=== PATIENT | female | born 1980 | race American Indian/Alaskan Native ===

== ENCOUNTER 2021-03-05 14:36 | Inpatient (IN) | payer MEDICAID, OTHER ==
[2021-03-05] MEDS ORDERED: SODIUM CHLORIDE 0.9% 1000 ML IV SOLN IV ONE (16:25)
[2021-03-05] MEDS ORDERED: AZITHROMYCIN/NS 500 MG/250 ML 500 MG/250 ML BAG IV ONE (16:25)
[2021-03-05] MEDS ORDERED: cefTRIAXone/NS 2 GM/100 ML 2 GM/100 ML BAG IV ONE (16:25)
--- NOTE | 2021-03-05 16:52 | XRay Report ---
CHEST 1 VIEW 03/05/2021 4:44 PM INDICATION / CLINICAL INFORMATION: Shortness of breath. COMPARISON: None available. FINDINGS: SUPPORT DEVICES: None. HEART / MEDIASTINUM: No significant abnormality. LUNGS / PLEURA: There are patchy bilateral pulmonary opacities. No pneumothorax. ADDITIONAL FINDINGS: No significant additional findings. IMPRESSION: 1. Patchy bilateral pulmonary opacities suggestive of multifocal pneumonia. Signer Name: Toby Dinh MD Signed: 03/05/2021 4:48 PM Workstation Name: [id number]
[2021-03-05] MEDS ORDERED: LIDOCAINE VISCOUS 2% 15 ML ORAL LIQD PO ONE (17:22)
[2021-03-05 17:27] LABS: Bacteria,Urine 1+ /HPF (Negative); Bilirubin,Urine NEG (Negative); Blood,Urine SM (Negative); Color,Urine Yellow (Yellow); Mucus,Urine FEW /HPF; Urobilinogen,Urine < 2.0 mg/dL (<2.0)
[2021-03-05 17:38] LABS: Albumin 3.3 g/dL (3.9-5); Calcium 8.1 mg/dL (8.4-10.2)
--- NOTE | 2021-03-05 18:01 | Emergency Department Report ---
ED General Adult HPI - General Chief complaint: Dyspnea/Respdistress Stated complaint: COVID +/SCOTTY Time Seen by Provider: 03/05/21 15:55 Source: EMS Mode of arrival: Stretcher Limitations: No Limitations - History of Present Illness Initial comments: The patient presents to the emergency department with a chief complaint of increased shortness of breath. Patient states she was diagnosed with COVID-19 on February 24. Patient states that shortness of breath is worse with exertion. Upon EMS arrival her O2 sats were 88% on room air. Patient denies abdominal pain or headache. Patient does have chest pain with inspiration. -: Gradual Severity scale (0 -10): 3 Quality: aching Consistency: constant Improves with: none Worsens with: none Associated Symptoms: denies other symptoms Treatments Prior to Arrival: none - Related Data Home Medications Medication Instructions Recorded Confirmed Last Taken Ferrous Sulfate [Feosol 325 MG tab] 325 mg PO QDAY 06/15/16 03/05/21 03/05/21 Previous Rx's Medication Instructions Recorded Last Taken Type HYDROcodone/APAP 5-325 [[place] 1 each PO Q6HR PRN #24 tablet 06/29/16 Unknown Rx 5/325] Allergies Allergy/AdvReac Type Severity Reaction Status Date / Time No Known Allergies Allergy Verified 03/05/21 15:52 ED Review of Systems ROS: Stated complaint: COVID +/SCOTTY Other details as noted in HPI Constitutional: denies: chills, fever Eyes: denies: eye pain, eye discharge, vision change ENT: denies: ear pain, throat pain Respiratory: shortness of breath. denies: cough, wheezing Cardiovascular: denies: chest pain, palpitations Endocrine: no symptoms reported Gastrointestinal: denies: abdominal pain, nausea, diarrhea Genitourinary: denies: urgency, dysuria, discharge Musculoskeletal: denies: back pain, joint swelling, arthralgia Skin: denies: rash, lesions Neurological: denies: headache, weakness, paresthesias Psychiatric: denies: anxiety, depression Hematological/Lymphatic: denies: easy bleeding, easy bruising ED Past Medical Hx - Past Medical History Hx Hypertension: No Hx Congestive Heart Failure: No Hx Diabetes: No Hx Deep Vein Thrombosis: Yes Hx Pulmonary Embolism: Yes (IN 2011) Hx Renal Disease: No Hx Sickle Cell Disease: No Hx Seizures: No Hx Asthma: No Hx COPD: No Hx HIV: No Additional medical history: anemia - Surgical History Past Surgical History?: Yes Additional Surgical History: Myoectomy - Social History Smoking Status: Never Smoker Substance Use Type: None - Medications Home Medications: Home Medications Medication Instructions Recorded Confirmed Last Taken Type Ferrous Sulfate [Feosol 325 MG tab] 325 mg PO QDAY 06/15/16 03/05/21 03/05/21 History HYDROcodone/APAP 5-325 [[place] 1 each PO Q6HR PRN #24 tablet 06/29/16 Unknown Rx 5/325] ED Physical Exam - General Limitations: No Limitations General appearance: alert, in no apparent distress - Head Head exam: Present: atraumatic, normocephalic - Eye Eye exam: Present: normal appearance, PERRL, EOMI - ENT ENT exam: Present: mucous membranes moist - Neck Neck exam: Present: normal inspection - Respiratory Respiratory exam: Present: respiratory distress, rales - Cardiovascular Cardiovascular Exam: Present: normal rhythm, tachycardia. Absent: systolic murmur, diastolic murmur, rubs, gallop - GI/Abdominal GI/Abdominal exam: Present: soft, normal bowel sounds. Absent: distended, tenderness - Extremities Exam Extremities exam: Present: normal inspection - Back Exam Back exam: Present: normal inspection - Neurological Exam Neurological exam: Present: alert, oriented X3, CN II-XII intact. Absent: motor sensory deficit - Psychiatric Psychiatric exam: Present: normal affect, normal mood - Skin Skin exam: Present: warm, dry, intact, normal color. Absent: rash ED Course Vital Signs 03/05/21 03/05/21 03/05/21 15:00 15:37 15:40 Temperature 100.0 F H 99.4 F Pulse Rate 84 Respiratory 33 H Rate Blood Pressure 94/55 Blood Pressure [Right] O2 Sat by Pulse 88 98 Oximetry 03/05/21 03/05/21 15:53 17:14 Temperature Pulse Rate 83 Respiratory 21 26 H Rate Blood Pressure Blood Pressure 109/62 [Right] O2 Sat by Pulse 98 98 Oximetry ED Medical Decision Making - Lab Data Result diagrams: 03/05/21 17:01 Lab Results 03/05/21 03/05/21 03/05/21 Range/Units 17:01 17:01 17:01 WBC 7.8 (4.5-11.0) K/mm3 RBC 4.16 (3.65-5.03) M/mm3 Hgb 11.7 (10.1-14.3) gm/dl Hct 35.5 (30.3-42.9) % MCV 85 (79-97) fl MCH 28 (28-32) pg MCHC 33 (30-34) % RDW 15.8 H (13.2-15.2) % Plt Count 288 (140-440) K/mm3 Lymph % (Auto) 8.9 L (13.4-35.0) % Bee % (Auto) 11.6 H (0.0-7.3) % Eos % (Auto) 0.0 (0.0-4.3) % Baso % (Auto) 0.2 (0.0-1.8) % Lymph # (Auto) 0.7 L (1.2-5.4) K/mm3 Bee # (Auto) 0.9 H (0.0-0.8) K/mm3 Eos # (Auto) 0.0 (0.0-0.4) K/mm3 Baso # (Auto) 0.0 (0.0-0.1) K/mm3 Seg Neutrophils % 79.3 H (40.0-70.0) % Seg Neutrophils # 6.2 (1.8-7.7) K/mm3 Sodium 122 L (137-145) mmol/L Potassium 4.5 (3.6-5.0) mmol/L Chloride 90.7 L (98-107) mmol/L Carbon Dioxide 15 L (22-30) mmol/L Anion Gap 21 mmol/L BUN 34 H (7-17) mg/dL Creatinine 1.5 H (0.6-1.2) mg/dL Estimated GFR 47 ml/min BUN/Creatinine Ratio 23 % Glucose 90 (65-100) mg/dL Lactic Acid 1.40 (0.7-2.0) mmol/L Calcium 8.1 L (8.4-10.2) mg/dL Total Bilirubin 0.70 (0.1-1.2) mg/dL AST 75 H (5-40) units/L ALT 49 (7-56) units/L Alkaline Phosphatase 53 (35-129) units/L Total Protein 7.7 (6.3-8.2) g/dL Albumin 3.3 L (3.9-5) g/dL Albumin/Globulin Ratio 0.8 % Urine Color (Yellow) Urine Turbidity (Clear) Urine pH (5.0-7.0) Ur Specific [place] (1.003-1.030) Urine Protein (Negative) mg/dL Urine Glucose (UA) (Negative) mg/dL Urine Ketones (Negative) mg/dL Urine Blood (Negative) Urine Nitrite (Negative) Urine Bilirubin (Negative) Urine Urobilinogen (<2.0) mg/dL Ur Leukocyte Esterase (Negative) Urine WBC (Auto) (0.0-6.0) /HPF Urine RBC (Auto) (0.0-6.0) /HPF U Epithel Cells (Auto) (0-13.0) /HPF Urine Bacteria (Auto) (Negative) /HPF Urine Mucus /HPF Urine Yeast (Budding) /HPF 03/05/21 Range/Units Unknown WBC (4.5-11.0) K/mm3 RBC (3.65-5.03) M/mm3 Hgb (10.1-14.3) gm/dl Hct (30.3-42.9) % MCV (79-97) fl MCH (28-32) pg MCHC (30-34) % RDW (13.2-15.2) % Plt Count (140-440) K/mm3 Lymph % (Auto) (13.4-35.0) % Bee % (Auto) (0.0-7.3) % Eos % (Auto) (0.0-4.3) % Baso % (Auto) (0.0-1.8) % Lymph # (Auto) (1.2-5.4) K/mm3 Bee # (Auto) (0.0-0.8) K/mm3 Eos # (Auto) (0.0-0.4) K/mm3 Baso # (Auto) (0.0-0.1) K/mm3 Seg Neutrophils % (40.0-70.0) % Seg Neutrophils # (1.8-7.7) K/mm3 Sodium (137-145) mmol/L Potassium (3.6-5.0) mmol/L Chloride (98-107) mmol/L Carbon Dioxide (22-30) mmol/L Anion Gap mmol/L BUN (7-17) mg/dL Creatinine (0.6-1.2) mg/dL Estimated GFR ml/min BUN/Creatinine Ratio % Glucose (65-100) mg/dL Lactic Acid (0.7-2.0) mmol/L Calcium (8.4-10.2) mg/dL Total Bilirubin (0.1-1.2) mg/dL AST (5-40) units/L ALT (7-56) units/L Alkaline Phosphatase (35-129) units/L Total Protein (6.3-8.2) g/dL Albumin (3.9-5) g/dL Albumin/Globulin Ratio % Urine Color Yellow (Yellow) Urine Turbidity Slightly-cloudy (Clear) Urine pH 5.0 (5.0-7.0) Ur Specific [place] 1.010 (1.003-1.030) Urine Protein 30 mg/dl (Negative) mg/dL Urine Glucose (UA) Neg (Negative) mg/dL Urine Ketones Neg (Negative) mg/dL Urine Blood Sm (Negative) Urine Nitrite Neg (Negative) Urine Bilirubin Neg (Negative) Urine Urobilinogen < 2.0 (<2.0) mg/dL Ur Leukocyte Esterase Neg (Negative) Urine WBC (Auto) 6.0 (0.0-6.0) /HPF Urine RBC (Auto) 3.0 (0.0-6.0) /HPF U Epithel Cells (Auto) 1.0 (0-13.0) /HPF Urine Bacteria (Auto) 1+ (Negative) /HPF Urine Mucus Few /HPF Urine Yeast (Budding) 2+ /HPF - Radiology Data Radiology results: report reviewed - Medical Decision Making Results discussed with patient IV antibiotics and IV steroids given IV fluids given Critical Care Time: Yes Critical care time in (mins) excluding proc time.: 35 Critical care attestation.: If time is entered above; I have spent that time in minutes in the direct care of this critically ill patient, excluding procedure time. ED Disposition Clinical Impression: Pneumonia due to COVID-19 virus Disposition: OP ADMIT IP TO THIS HOSP Is pt being admited?: Yes Does the pt Need Aspirin: No Condition: Fair Instructions: Bacterial Pneumonia (ED) Referrals: PRIMARY CARE, [Primary Care Provider] - 3-5 Days
[2021-03-05 18:06] LABS: Basophils % (Auto) 0.2 % (0.0-1.8); Hematocrit 35.5 % (30.3-42.9); Hemoglobin 11.7 gm/dl (10.1-14.3); Lymphocytes # (Auto) 0.7 K/mm3 (1.2-5.4); Lymphocytes % (Auto) 8.9 % (13.4-35.0); Mean Corpuscular HGB Conc 33 % (30-34); Mean Corpuscular Volume 85 fl (79-97); Monocytes # (Auto) 0.9 K/mm3 (0.0-0.8); Monocytes % (Auto) 11.6 % (0.0-7.3); Platelet Count 288 K/mm3 (140-440); Red Blood Count 4.16 M/mm3 (3.65-5.03); Red Cell Distribution Width 15.8 % (13.2-15.2)
--- NOTE | 2021-03-05 18:43 | History and Physical Report ---
History of Present Illness Chief complaint: I cannot breathe History of present illness: 39 YO Female with Anemia, Obesity Hyopventilation Syndrome, History of DVT/PE in 2012 not currently taking anticoagulation presents to ED for evaluation. Pt reports "I cannot breathe". Patient states that she has experienced shortness of breath over the past 1 week with progressively worsening symptoms over the same timeframe. Patient states that she was diagnosed with coronavirus on February 24, 2021. Patient acknowledges worsening symptoms over the 1 week. EMS notified and upon arrival the patient was found to be in distress with a pulse oximetry of 86% on room air. Patient placed on supplemental oxygen and subsequently transported to [facility] for further care and evaluation of the aforementioned symptoms. The patient was seen and evaluated in the emergency department. All lab and imaging studies reviewed. Patient acknowledges fatigue, malaise, body aches, shortness of breath, subjective fever, as well as decreased exercise tolerance. Patient is unable to speak in complete sentences due to shortness of breath. Patient is using accessory muscles to breathe. Patient found to have a pulse oximetry of 84% on exertion which is consistent with acute hypoxemic respiratory failure. Chest x-ray revealed bilateral pneumonia. Patient admitted to medical floor and initiated on pneumonia protocol as well as coronavirus protocol. Patient treated with supplemental oxygen with mild improvement in symptoms. Infectious disease team consulted in ED. Patient use head gestures to deny chest pain, palpitation, skin rash, recent ill contacts, known exposure to COVID-19. No prior admission for review. No medication listed at time of admission for reconciliation. Past History Past Medical History: DVT, pulmonary embolism, other (See HPI) Past Surgical History: Other Social history: single. denies: smoking, alcohol abuse, prescription drug abuse Family history: diabetes, hypertension Medications and Allergies Allergies Allergy/AdvReac Type Severity Reaction Status Date / Time No Known Allergies Allergy Verified 03/05/21 15:52 Home Medications Medication Instructions Recorded Confirmed Last Taken Type Ferrous Sulfate [Feosol 325 MG tab] 325 mg PO QDAY 06/15/16 03/05/21 03/05/21 History HYDROcodone/APAP 5-325 [[place] 1 each PO Q6HR PRN #24 tablet 06/29/16 Unknown Rx 5/325] Review of Systems Constitutional: fatigue, weakness, malaise, no chills, no sweats Ears, nose, mouth and throat: no ear pain, no ear discharge, no tinnitis, no nose pain, no nasal congestion Breasts: no change in shape, no swelling, no mass Cardiovascular: decreased exercise tolerance, no chest pain, no orthopnea, no rapid/irregular heart beat, no lightheadedness Respiratory: cough, shortness of breath Gastrointestinal: no nausea, no vomiting, no change in bowel habits Genitourinary Female: no pelvic pain, no flank pain, no dysuria, no urinary frequency, no urgency Rectal: no pain, no incontinence, no bleeding Musculoskeletal: no neck stiffness, no neck pain, no shooting arm pain, no arm numbness/tingling, no shooting leg pain, no leg numbness/tingling Integumentary: no rash, no pruritis, no redness, no sores, no wounds, no jaundice Neurological: no transient paralysis, no paralysis, no weakness, no parathesias, no tingling, no syncope Psychiatric: no anxiety, no insomnia, no hypersomnia, no change in appetite, no change in libido, no disorientation Endocrine: no cold intolerance, no heat intolerance, no polyphagia, no polydipsia, no polyuria, no nocturia, no excessive sweating Hematologic/Lymphatic: no easy bruising, no easy bleeding, no lymphadenopathy, no lymphedema Allergic/Immunologic: no urticaria, no wheezing, no anaphylaxis Exam - Constitutional Vitals: Temp Pulse Resp BP Pulse Ox 98.3 F 86 29 H 106/67 98 03/05/21 18:08 03/05/21 18:31 03/05/21 18:31 03/05/21 18:31 03/05/21 18:31 General appearance: Present: mild distress, obese - EENT Eyes: Present: PERRL ENT: hearing intact, clear oral mucosa - Neck Neck: Present: supple, normal ROM - Respiratory Respiratory effort: labored, accessory muscle use, stridor Respiratory: bilateral: diminished - Cardiovascular Heart Sounds: Present: S1 & S2. Absent: rub, click - Extremities Extremities: pulses symmetrical, No edema Peripheral Pulses: within normal limits - Abdominal General gastrointestinal: Present: soft, non-tender, non-distended, normal bowel sounds Female genitourinary: Present: normal - Integumentary Integumentary: Present: clear, warm, dry - Musculoskeletal Musculoskeletal: generalized weakness - Psychiatric Psychiatric: appropriate mood/affect, intact judgment & insight - Neurologic Neurologic: CNII-XII intact, moves all extremities Results - Labs CBC & Chem 7: 03/05/21 17:01 03/05/21 17:01 Labs: Abnormal lab results 03/05/21 03/05/21 03/05/21 Range/Units 17:01 17:01 18:07 RDW 15.8 H (13.2-15.2) % Lymph % (Auto) 8.9 L (13.4-35.0) % [place] % (Auto) 11.6 H (0.0-7.3) % Lymph # (Auto) 0.7 L (1.2-5.4) K/mm3 [place] # (Auto) 0.9 H (0.0-0.8) K/mm3 Seg Neutrophils % 79.3 H (40.0-70.0) % POC ABG pCO2 27.3 L (32.0-48.0) mmHg ABG Hemoglobin 11.7 L (12.0-17.5) ABG Sodium 123.8 L (136.0-145.0) mmol/L ABG Glucose 109 H (65-95) mg/dL Carboxyhemoglobin 0.4 L (0.5-1.5) Sodium 122 L (137-145) mmol/L Chloride 90.7 L (98-107) mmol/L Carbon Dioxide 15 L (22-30) mmol/L BUN 34 H (7-17) mg/dL Creatinine 1.5 H (0.6-1.2) mg/dL Calcium 8.1 L (8.4-10.2) mg/dL AST 75 H (5-40) units/L Albumin 3.3 L (3.9-5) g/dL Arterial Blood Glucose 109 H (65-95) mg/dL Arterial Blood Ionized Calcium 4.3 L (4.6-5.3) mg/dL Assessment and Plan - Patient Problems (1) Acute hypoxemic respiratory failure Current Visit: Yes Status: Acute Plan to address problem: Chest x-ray, supplemental oxygen, pulse oximetry, nebulizer therapy, noninvasive positive pressure ventilation as clinically indicated. (2) Pneumonia Current Visit: Yes Status: Acute Plan to address problem: Pneumonia protocol: Chest x-ray, CBC, CMP, supplemental oxygen, nebulizer therapy, blood culture. IV antibiotic therapy. (3) Suspected 2019 novel coronavirus infection Current Visit: Yes Status: Acute Plan to address problem: Coronavirus protocol: IV antibiotic therapy, IV steroid therapy, supplemental oxygen, pulse oximetry, nebulizer therapy, vitamin D therapy, vitamin C therapy, zinc therapy, prophylactic anticoagulation, prone positioning while in bed, (4) Obesity hypoventilation syndrome Current Visit: Yes Status: Acute Plan to address problem: Balanced diet, increase physical activity at discharge, outpatient pulmonary follow-up for sleep study. (5) History of DVT (deep vein thrombosis) Current Visit: Yes Status: Acute Plan to address problem: No prehospital anticoagulation. Continue prophylactic anticoagulation. (6) History of pulmonary embolism Current Visit: Yes Status: Acute Plan to address problem: No prehospital anticoagulation. Continue prophylactic anticoagulation. (7) DVT prophylaxis Current Visit: Yes Status: Acute Plan to address problem: SCD to bilateral lower extremities while in bed, prophylactic anticoagulation.
[2021-03-05] MEDS ORDERED: ACETAMINOPHEN 325 MG TAB PO PRN (18:49)
[2021-03-05] MEDS ORDERED: HYDROmorphone 1 MG/1 ML INJ IV PRN (18:49)
[2021-03-05] MEDS ORDERED: ALBUTEROL 2.5 MG/3 ML NEBU IH PRN (18:49)
[2021-03-05] MEDS ORDERED: oxyCODONE /ACETAMINOPHEN 5-325MG TAB PO PRN (18:49)
[2021-03-05] MEDS ORDERED: ONDANSETRON 4 MG/2 ML INJ IV PRN (18:49)
[2021-03-05] MEDS ORDERED: BENZONATATE 100 MG CAP PO PRN (18:53)
[2021-03-05] MEDS: methylPREDNISolone Sod Succinate 40 MG/1 ML INJ IV SCH (23:42)
[2021-03-05] MEDS: ZINC SULFATE 220 MG CAP PO SCH (23:42)
[2021-03-05] MEDS: FAMOTIDINE 20 MG TAB PO SCH (23:42)
[2021-03-05] MEDS: HEPARIN 5,000 UNIT/1 ML VIAL SUB-Q SCH (23:43)
[2021-03-06] MEDS: ASCORBIC ACID 500 MG TAB PO SCH ×3 (03:03→22:37)
[2021-03-06 05:50] LABS: Basophils % (Auto) 0.1 % (0.0-1.8); Hematocrit 33.4 % (30.3-42.9); Hemoglobin 11.3 gm/dl (10.1-14.3); Lymphocytes # (Auto) 0.4 K/mm3 (1.2-5.4); Lymphocytes % (Auto) 6.6 % (13.4-35.0); Mean Corpuscular HGB Conc 34 % (30-34); Mean Corpuscular Volume 85 fl (79-97); Monocytes # (Auto) 0.5 K/mm3 (0.0-0.8); Monocytes % (Auto) 8.7 % (0.0-7.3); Platelet Count 296 K/mm3 (140-440); Red Blood Count 3.91 M/mm3 (3.65-5.03); Red Cell Distribution Width 15.5 % (13.2-15.2)
[2021-03-06 06:20] LABS: Alanine Aminotransferase 43 units/L (7-56); Albumin 3.3 g/dL (3.9-5); BUN/Creatinine Ratio 18; Blood Urea Nitrogen 20 mg/dL (7-17); Calcium 7.7 mg/dL (8.4-10.2); Hemolysis Index 3
[2021-03-06] MEDS: methylPREDNISolone Sod Succinate 40 MG/1 ML INJ IV SCH ×3 (07:47→22:37)
--- NOTE | 2021-03-06 08:21 | Progress Note ---
Assessment and Plan Assessment and plan: Sepsis. COVID-19 pneumonia. Acute hypoxic respiratory failure. Etiology secondary to above. Obesity hypoventilation syndrome/SHERIE History of DVT/PE in 201103/06/2021. Await ID consultation. Continue to trend inflammatory markers. Continue IV antibiotics for now. Patient currently with 3 L O2 and satting 96%. Continue O2 supplementation and BiPAP as clinically indicated. History Interval history: No new issues overnight. Hospitalist Physical - Constitutional Vitals: Temp Pulse Resp BP Pulse Ox 98.8 F 81 19 113/75 97 03/05/21 21:00 03/06/21 07:45 03/06/21 07:45 03/06/21 07:45 03/06/21 07:45 General appearance: Present: mild distress, obese - EENT Eyes: Present: PERRL, EOM intact ENT: hearing intact, clear oral mucosa, dentition normal - Neck Neck: Present: supple, normal ROM - Respiratory Respiratory effort: normal Respiratory: bilateral: CTA - Cardiovascular Rhythm: regular Heart Sounds: Present: S1 & S2. Absent: gallop, rub - Extremities Extremities: no ischemia, No edema, Full ROM - Abdominal General gastrointestinal: soft, non-tender, non-distended, normal bowel sounds - Integumentary Integumentary: Present: clear, warm, dry - Neurologic Neurologic: CNII-XII intact, moves all extremities Results - Labs CBC & Chem 7: 03/06/21 05:21 03/06/21 05:21 Labs: Laboratory Last Values WBC 5.5 K/mm3 (4.5-11.0) 03/06/21 05:21 RBC 3.91 M/mm3 (3.65-5.03) 03/06/21 05:21 Hgb 11.3 gm/dl (10.1-14.3) 03/06/21 05:21 Hct 33.4 % (30.3-42.9) 03/06/21 05:21 MCV 85 fl (79-97) 03/06/21 05:21 MCH 29 pg (28-32) 03/06/21 05:21 MCHC 34 % (30-34) 03/06/21 05:21 RDW 15.5 % (13.2-15.2) H 03/06/21 05:21 Plt Count 296 K/mm3 (140-440) 03/06/21 05:21 Lymph % (Auto) 6.6 % (13.4-35.0) L 03/06/21 05:21 [place] % (Auto) 8.7 % (0.0-7.3) H 03/06/21 05:21 Eos % (Auto) 0.0 % (0.0-4.3) 03/06/21 05:21 Baso % (Auto) 0.1 % (0.0-1.8) 03/06/21 05:21 Lymph # (Auto) 0.4 K/mm3 (1.2-5.4) L 03/06/21 05:21 [place] # (Auto) 0.5 K/mm3 (0.0-0.8) 03/06/21 05:21 Eos # (Auto) 0.0 K/mm3 (0.0-0.4) 03/06/21 05:21 Baso # (Auto) 0.0 K/mm3 (0.0-0.1) 03/06/21 05:21 Seg Neutrophils % 84.6 % (40.0-70.0) H 03/06/21 05:21 Seg Neutrophils # 4.7 K/mm3 (1.8-7.7) 03/06/21 05:21 APTT 34.6 Sec. (24.2-36.6) 03/05/21 17:01 ABG pH 7.351 (7.320-7.450) 03/05/21 18:07 POC ABG pCO2 27.3 mmHg (32.0-48.0) L 03/05/21 18:07 POC ABG pO2 95.9 mmHg (83-108) 03/05/21 18:07 POC ABG HCO3 14.8 03/05/21 18:07 ABG O2 Saturation 96.8 (0-100) 03/05/21 18:07 POC ABG Base Excess -9.4 03/05/21 18:07 ABG Hemoglobin 11.7 (12.0-17.5) L 03/05/21 18:07 ABG Oxyhemoglobin 96.1 (94-98) 03/05/21 18:07 ABG Methemoglobin 0.3 (0.0-1.5) 03/05/21 18:07 ABG Sodium 123.8 mmol/L (136.0-145.0) L 03/05/21 18:07 ABG Potassium 4.0 mmol/L (3.40-4.50) 03/05/21 18:07 ABG Chloride 101.0 mmol/L (98-107) 03/05/21 18:07 ABG Glucose 109 mg/dL (65-95) H 03/05/21 18:07 Carboxyhemoglobin 0.4 (0.5-1.5) L 03/05/21 18:07 FiO2 % 32.0 03/05/21 18:07 Sodium 136 mmol/L (137-145) L D 03/06/21 05:21 Potassium 5.2 mmol/L (3.6-5.0) H 03/06/21 05:21 Chloride 107.1 mmol/L (98-107) H 03/06/21 05:21 Carbon Dioxide 15 mmol/L (22-30) L 03/06/21 05:21 Anion Gap 19 mmol/L 03/06/21 05:21 BUN 20 mg/dL (7-17) H 03/06/21 05:21 Creatinine 1.1 mg/dL (0.6-1.2) 03/06/21 05:21 Estimated GFR > 60 ml/min 03/06/21 05:21 BUN/Creatinine Ratio 18 % 03/06/21 05:21 Glucose 123 mg/dL (65-100) H 03/06/21 05:21 Lactic Acid 1.20 mmol/L (0.7-2.0) 03/05/21 19:09 Calcium 7.7 mg/dL (8.4-10.2) L 03/06/21 05:21 Total Bilirubin 0.40 mg/dL (0.1-1.2) 03/06/21 05:21 AST 63 units/L (5-40) H 03/06/21 05:21 ALT 43 units/L (7-56) 03/06/21 05:21 Alkaline Phosphatase 52 units/L (35-129) 03/06/21 05:21 Total Protein 6.7 g/dL (6.3-8.2) 03/06/21 05:21 Albumin 3.3 g/dL (3.9-5) L 03/06/21 05:21 Albumin/Globulin Ratio 1.0 % 03/06/21 05:21 Arterial Blood Glucose 109 mg/dL (65-95) H 03/05/21 18:07 Arterial Blood Ionized Calcium 4.3 mg/dL (4.6-5.3) L 03/05/21 18:07 Urine Color Yellow (Yellow) 03/05/21 Unknown Urine Turbidity Slightly-cloudy (Clear) 03/05/21 Unknown Urine pH 5.0 (5.0-7.0) 03/05/21 Unknown Ur Specific [place] 1.010 (1.003-1.030) 03/05/21 Unknown Urine Protein 30 mg/dl mg/dL (Negative) 03/05/21 Unknown Urine Glucose (UA) Neg mg/dL (Negative) 03/05/21 Unknown Urine Ketones Neg mg/dL (Negative) 03/05/21 Unknown Urine Blood Sm (Negative) 03/05/21 Unknown Urine Nitrite Neg (Negative) 03/05/21 Unknown Urine Bilirubin Neg (Negative) 03/05/21 Unknown Urine Urobilinogen < 2.0 mg/dL (<2.0) 03/05/21 Unknown Ur Leukocyte Esterase Neg (Negative) 03/05/21 Unknown Urine WBC (Auto) 6.0 /HPF (0.0-6.0) 03/05/21 Unknown Urine RBC (Auto) 3.0 /HPF (0.0-6.0) 03/05/21 Unknown U Epithel Cells (Auto) 1.0 /HPF (0-13.0) 03/05/21 Unknown Urine Bacteria (Auto) 1+ /HPF (Negative) 03/05/21 Unknown Urine Mucus Few /HPF 03/05/21 Unknown Urine Yeast (Budding) 2+ /HPF 03/05/21 Unknown Microbiology: Microbiology 03/05/21 19:09 Peripheral/Venous Blood Culture - Preliminary Culture in Progress 03/05/21 17:01 Peripheral/Venous Blood Culture - Preliminary Culture in Progress Active Medications - Current Medications Current Medications: Generic Name Dose Route Start Last Admin Trade Name Freq PRN Reason Stop Dose Admin Acetaminophen 650 mg 03/05/21 18:49 Acetaminophen 325 Mg Tab PO Q4H PRN Pain MILD(1-3)/Fever >100.5/STARK Albuterol 2.5 mg 03/05/21 18:49 Albuterol 2.5 Mg/3 Ml Nebu IH Q4HRT PRN Shortness Of Breath Ascorbic Acid 500 mg 03/05/21 22:00 03/06/21 03:03 Ascorbic Acid 500 Mg Tab PO Not Given BID [facility] Benzonatate 100 mg 03/05/21 18:53 Benzonatate 100 Mg Cap PO Q8HR PRN Cough Cholecalciferol 1,000 unit 03/06/21 10:00 Cholecalciferol (Vit D3) 1000 Unit (25 Mcg) Tab PO QDAY [facility] Famotidine 20 mg 03/05/21 22:00 03/05/21 23:42 Famotidine 20 Mg Tab PO 20 mg BID DEVIKA Administration Ferrous Sulfate 325 mg 03/06/21 10:00 Ferrous Sulfate 325 Mg Tab PO QDAY [facility] Heparin Sodium (Porcine) 5,000 unit 03/05/21 22:00 03/05/21 23:43 Heparin 5,000 Unit/1 Ml Vial SUB-Q 5,000 unit Q12HR DEVIKA Administration Hydromorphone HCl 0.5 mg 03/05/21 18:49 Hydromorphone 1 Mg/1 Ml Inj IV Q12H PRN Pain , Severe (7-10) Ceftriaxone Sodium 2 gm in 100 mls @ 200 mls/hr 03/06/21 16:00 Rocephin/Ns 2 Gm/100 Ml IV Q24H [facility] Protocol Azithromycin 500 mg in 250 mls @ 250 mls/hr 03/06/21 17:00 Zithromax/Ns IV Q24H [facility] Protocol Methylprednisolone Sodium Succinate 40 mg 03/05/21 22:00 03/06/21 07:47 Methylprednisolone Sod Succinate 40 Mg/1 Ml Inj IV 40 mg Q8HR DEVIKA Administration Ondansetron HCl 4 mg 03/05/21 18:49 Ondansetron 4 Mg/2 Ml Inj IV Q8H PRN Nausea And Vomiting Oxycodone/Acetaminophen 1 tab 03/05/21 18:49 Oxycodone /Acetaminophen 5-325mg Tab PO Q12H PRN Pain, Moderate (4-6) Sodium Chloride 10 ml 03/05/21 22:00 03/05/21 23:42 Sodium Chloride 0.9% 10 Ml Flush Syringe IV 10 ml BID DEVIKA Administration Sodium Chloride 10 ml 03/05/21 18:49 Sodium Chloride 0.9% 10 Ml Flush Syringe IV PRN PRN LINE FLUSH Zinc Sulfate 220 mg 03/05/21 22:00 03/05/21 23:42 Zinc Sulfate 220 Mg Cap PO 220 mg BID DEVIKA Administration
[2021-03-06] MEDS ORDERED: LORazepam 2 MG/ML VIAL IV ONE (11:57)
[2021-03-06] MEDS: CHOLECALCIFEROL (VIT D3) 1000 UNIT (25 mcg) TAB PO SCH (12:13)
[2021-03-06] MEDS: ZINC SULFATE 220 MG CAP PO SCH ×2 (12:14→22:37)
[2021-03-06] MEDS: FERROUS SULFATE 325 MG TAB PO SCH (12:14)
[2021-03-06] MEDS: FAMOTIDINE 20 MG TAB PO SCH ×2 (12:14→22:38)
[2021-03-06] MEDS: HEPARIN 5,000 UNIT/1 ML VIAL SUB-Q SCH ×2 (12:14→22:37)
[2021-03-06] MEDS: cefTRIAXone/NS 2 GM/100 ML 2 GM/100 ML BAG IV SCH (18:10)
[2021-03-06] MEDS: AZITHROMYCIN/NS 500 MG/250 ML 500 MG/250 ML BAG IV SCH (18:11)
[2021-03-07] MEDS: methylPREDNISolone Sod Succinate 40 MG/1 ML INJ IV SCH ×3 (05:26→22:22)
--- NOTE | 2021-03-07 08:53 | Progress Note ---
Assessment and Plan Assessment and plan: Sepsis. COVID-19 pneumonia. Acute hypoxic respiratory failure. Etiology secondary to above. Obesity hypoventilation syndrome/SHERIE History of DVT/PE in 201103/06/2021. Await ID consultation. Continue to trend inflammatory markers. Continue IV antibiotics for now. Patient currently with 3 L O2 and satting 96%. Continue O2 supplementation and BiPAP as clinically indicated. 03/07/2021. Await ID consultation. Continue to trend inflammatory markers. Continue O2 to maintain sats greater than 92%. History Interval history: No new issues overnight. Hospitalist Physical - Constitutional Vitals: Temp Pulse Resp BP Pulse Ox 99.0 F 79 20 145/90 96 03/07/21 05:16 03/07/21 05:16 03/07/21 05:16 03/07/21 05:16 03/07/21 05:16 General appearance: Present: mild distress, obese - EENT Eyes: Present: PERRL, EOM intact ENT: hearing intact, clear oral mucosa, dentition normal - Neck Neck: Present: supple, normal ROM - Respiratory Respiratory effort: normal Respiratory: bilateral: CTA - Cardiovascular Rhythm: regular Heart Sounds: Present: S1 & S2. Absent: gallop, rub - Extremities Extremities: no ischemia, No edema, Full ROM - Abdominal General gastrointestinal: soft, non-tender, non-distended, normal bowel sounds - Integumentary Integumentary: Present: clear, warm, dry - Neurologic Neurologic: CNII-XII intact, moves all extremities Results - Labs CBC & Chem 7: 03/06/21 05:21 03/06/21 05:21 Labs: Laboratory Last Values WBC 5.5 K/mm3 (4.5-11.0) 03/06/21 05:21 RBC 3.91 M/mm3 (3.65-5.03) 03/06/21 05:21 Hgb 11.3 gm/dl (10.1-14.3) 03/06/21 05:21 Hct 33.4 % (30.3-42.9) 03/06/21 05:21 MCV 85 fl (79-97) 03/06/21 05:21 MCH 29 pg (28-32) 03/06/21 05:21 MCHC 34 % (30-34) 03/06/21 05:21 RDW 15.5 % (13.2-15.2) H 03/06/21 05:21 Plt Count 296 K/mm3 (140-440) 03/06/21 05:21 Lymph % (Auto) 6.6 % (13.4-35.0) L 03/06/21 05:21 [place] % (Auto) 8.7 % (0.0-7.3) H 03/06/21 05:21 Eos % (Auto) 0.0 % (0.0-4.3) 03/06/21 05:21 Baso % (Auto) 0.1 % (0.0-1.8) 03/06/21 05:21 Lymph # (Auto) 0.4 K/mm3 (1.2-5.4) L 03/06/21 05:21 [place] # (Auto) 0.5 K/mm3 (0.0-0.8) 03/06/21 05:21 Eos # (Auto) 0.0 K/mm3 (0.0-0.4) 03/06/21 05:21 Baso # (Auto) 0.0 K/mm3 (0.0-0.1) 03/06/21 05:21 Seg Neutrophils % 84.6 % (40.0-70.0) H 03/06/21 05:21 Seg Neutrophils # 4.7 K/mm3 (1.8-7.7) 03/06/21 05:21 APTT 34.6 Sec. (24.2-36.6) 03/05/21 17:01 ABG pH 7.351 (7.320-7.450) 03/05/21 18:07 POC ABG pCO2 27.3 mmHg (32.0-48.0) L 03/05/21 18:07 POC ABG pO2 95.9 mmHg (83-108) 03/05/21 18:07 POC ABG HCO3 14.8 03/05/21 18:07 ABG O2 Saturation 96.8 (0-100) 03/05/21 18:07 POC ABG Base Excess -9.4 03/05/21 18:07 ABG Hemoglobin 11.7 (12.0-17.5) L 03/05/21 18:07 ABG Oxyhemoglobin 96.1 (94-98) 03/05/21 18:07 ABG Methemoglobin 0.3 (0.0-1.5) 03/05/21 18:07 ABG Sodium 123.8 mmol/L (136.0-145.0) L 03/05/21 18:07 ABG Potassium 4.0 mmol/L (3.40-4.50) 03/05/21 18:07 ABG Chloride 101.0 mmol/L (98-107) 03/05/21 18:07 ABG Glucose 109 mg/dL (65-95) H 03/05/21 18:07 Carboxyhemoglobin 0.4 (0.5-1.5) L 03/05/21 18:07 FiO2 % 32.0 03/05/21 18:07 Sodium 136 mmol/L (137-145) L D 03/06/21 05:21 Potassium 5.2 mmol/L (3.6-5.0) H 03/06/21 05:21 Chloride 107.1 mmol/L (98-107) H 03/06/21 05:21 Carbon Dioxide 15 mmol/L (22-30) L 03/06/21 05:21 Anion Gap 19 mmol/L 03/06/21 05:21 BUN 20 mg/dL (7-17) H 03/06/21 05:21 Creatinine 1.1 mg/dL (0.6-1.2) 03/06/21 05:21 Estimated GFR > 60 ml/min 03/06/21 05:21 BUN/Creatinine Ratio 18 % 03/06/21 05:21 Glucose 123 mg/dL (65-100) H 03/06/21 05:21 Lactic Acid 1.20 mmol/L (0.7-2.0) 03/05/21 19:09 Calcium 7.7 mg/dL (8.4-10.2) L 03/06/21 05:21 Total Bilirubin 0.40 mg/dL (0.1-1.2) 03/06/21 05:21 AST 63 units/L (5-40) H 03/06/21 05:21 ALT 43 units/L (7-56) 03/06/21 05:21 Alkaline Phosphatase 52 units/L (35-129) 03/06/21 05:21 Total Protein 6.7 g/dL (6.3-8.2) 03/06/21 05:21 Albumin 3.3 g/dL (3.9-5) L 03/06/21 05:21 Albumin/Globulin Ratio 1.0 % 03/06/21 05:21 Arterial Blood Glucose 109 mg/dL (65-95) H 03/05/21 18:07 Arterial Blood Ionized Calcium 4.3 mg/dL (4.6-5.3) L 03/05/21 18:07 Urine Color Yellow (Yellow) 03/05/21 Unknown Urine Turbidity Slightly-cloudy (Clear) 03/05/21 Unknown Urine pH 5.0 (5.0-7.0) 03/05/21 Unknown Ur Specific [place] 1.010 (1.003-1.030) 03/05/21 Unknown Urine Protein 30 mg/dl mg/dL (Negative) 03/05/21 Unknown Urine Glucose (UA) Neg mg/dL (Negative) 03/05/21 Unknown Urine Ketones Neg mg/dL (Negative) 03/05/21 Unknown Urine Blood Sm (Negative) 03/05/21 Unknown Urine Nitrite Neg (Negative) 03/05/21 Unknown Urine Bilirubin Neg (Negative) 03/05/21 Unknown Urine Urobilinogen < 2.0 mg/dL (<2.0) 03/05/21 Unknown Ur Leukocyte Esterase Neg (Negative) 03/05/21 Unknown Urine WBC (Auto) 6.0 /HPF (0.0-6.0) 03/05/21 Unknown Urine RBC (Auto) 3.0 /HPF (0.0-6.0) 03/05/21 Unknown U Epithel Cells (Auto) 1.0 /HPF (0-13.0) 03/05/21 Unknown Urine Bacteria (Auto) 1+ /HPF (Negative) 03/05/21 Unknown Urine Mucus Few /HPF 03/05/21 Unknown Urine Yeast (Budding) 2+ /HPF 03/05/21 Unknown Microbiology: Microbiology 03/05/21 19:09 Peripheral/Venous Blood Culture - Preliminary NO GROWTH AFTER 24 HOURS 03/05/21 17:01 Peripheral/Venous Blood Culture - Preliminary NO GROWTH AFTER 24 HOURS Monae/IV: Voiding Method Toilet Active Medications - Current Medications Current Medications: Generic Name Dose Route Start Last Admin Trade Name Freq PRN Reason Stop Dose Admin Acetaminophen 650 mg 03/05/21 18:49 Acetaminophen 325 Mg Tab PO Q4H PRN Pain MILD(1-3)/Fever >100.5/STARK Albuterol 2.5 mg 03/05/21 18:49 Albuterol 2.5 Mg/3 Ml Nebu IH Q4HRT PRN Shortness Of Breath Ascorbic Acid 500 mg 03/05/21 22:00 03/06/21 22:37 Ascorbic Acid 500 Mg Tab PO 500 mg BID DEVIKA Administration Benzonatate 100 mg 03/05/21 18:53 Benzonatate 100 Mg Cap PO Q8HR PRN Cough Cholecalciferol 1,000 unit 03/06/21 10:00 03/06/21 12:13 Cholecalciferol (Vit D3) 1000 Unit (25 Mcg) Tab PO 1,000 unit QDAY DEVIKA Administration Famotidine 20 mg 03/05/21 22:00 03/06/21 22:38 Famotidine 20 Mg Tab PO 20 mg BID DEVIKA Administration Ferrous Sulfate 325 mg 03/06/21 10:00 03/06/21 12:14 Ferrous Sulfate 325 Mg Tab PO 325 mg QDAY DEVIKA Administration Heparin Sodium (Porcine) 5,000 unit 03/05/21 22:00 03/06/21 22:37 Heparin 5,000 Unit/1 Ml Vial SUB-Q 5,000 unit Q12HR DEVIKA Administration Hydromorphone HCl 0.5 mg 03/05/21 18:49 Hydromorphone 1 Mg/1 Ml Inj IV Q12H PRN Pain , Severe (7-10) Ceftriaxone Sodium 2 gm in 100 mls @ 200 mls/hr 03/06/21 16:00 03/06/21 18:10 Rocephin/Ns 2 Gm/100 Ml IV 03/09/21 16:29 200 mls/hr Q24H DEVIKA Administration Protocol Azithromycin 500 mg in 250 mls @ 250 mls/hr 03/06/21 17:00 03/06/21 18:11 Zithromax/Ns IV 03/09/21 17:59 250 mls/hr Q24H DEVIKA Administration Protocol Methylprednisolone Sodium Succinate 40 mg 03/05/21 22:00 03/07/21 05:26 Methylprednisolone Sod Succinate 40 Mg/1 Ml Inj IV 40 mg Q8HR DEVIKA Administration Ondansetron HCl 4 mg 03/05/21 18:49 Ondansetron 4 Mg/2 Ml Inj IV Q8H PRN Nausea And Vomiting Oxycodone/Acetaminophen 1 tab 03/05/21 18:49 Oxycodone /Acetaminophen 5-325mg Tab PO Q12H PRN Pain, Moderate (4-6) Sodium Chloride 10 ml 03/05/21 22:00 03/06/21 22:39 Sodium Chloride 0.9% 10 Ml Flush Syringe IV 10 ml BID DEVIKA Administration Sodium Chloride 10 ml 03/05/21 18:49 Sodium Chloride 0.9% 10 Ml Flush Syringe IV PRN PRN LINE FLUSH Zinc Sulfate 220 mg 03/05/21 22:00 03/06/21 22:37 Zinc Sulfate 220 Mg Cap PO 220 mg BID DEVIKA Administration Nutrition/Malnutrition Assess - Dietary Evaluation Nutrition/Malnutrition Findings: Nutrition Notes Start: 03/07/21 08:32 Freq: Status: Active Protocol: Document 03/07/21 08:32 RUSSEL (Rec: 03/07/21 08:33 RUSSEL [id number]) Nutrition Notes Need for Assessment generated from: rug sizer Initial or Follow up Brief Note Subjective/Other Information RN screen for skin risk. No Nico score in chart. Skin intact, no wounds noted. Nutrition Intervention Revisit per MD consult or patient Sign Off request: Additional Comments Please reconsult if needed
--- NOTE | 2021-03-07 09:49 | Consultation ---
History of Present Illness - Reason for Consult Consult date: 03/07/21 - History of Present Illness 31-year-old female past medical history anemia, obesity hypoventilation syndrome, history of PE not on anticoagulation presented to hospital complaining of shortness of breath. Started around 1 week prior to admission has been progressively worse since onset. She was initially diagnosed with COVID-19 on February 24. She is found to be hypoxic on presentation. Afebrile since admission with a white count 5.5. Improving LATONIA. No procalcitonin available. Blood cultures no growth so far. Currently on ceftriaxone and azithromycin with methylprednisolone. On 3 L nasal cannula. Imaging personally reviewed: Chest x-ray: Patchy bilateral pulmonary opacities Review of systems: Deferred to reduce to the risk of transmission of COVID-19 Past History Past Medical History: DVT, pulmonary embolism, other (See HPI) Past Surgical History: Other Social history: single. denies: smoking, alcohol abuse, prescription drug abuse Family history: diabetes, hypertension Medications and Allergies Allergies Allergy/AdvReac Type Severity Reaction Status Date / Time No Known Allergies Allergy Verified 03/05/21 15:52 Home Medications Medication Instructions Recorded Confirmed Last Taken Type Ferrous Sulfate [Feosol 325 MG tab] 325 mg PO QDAY 06/15/16 03/05/21 03/05/21 History HYDROcodone/APAP 5-325 [[place] 1 each PO Q6HR PRN #24 tablet 06/29/16 Unknown Rx 5/325] Active Meds: Active Medications Acetaminophen (Acetaminophen 325 Mg Tab) 650 mg PO Q4H PRN PRN Reason: Pain MILD(1-3)/Fever >100.5/STARK Albuterol (Albuterol 2.5 Mg/3 Ml Nebu) 2.5 mg IH Q4HRT PRN PRN Reason: Shortness Of Breath Ascorbic Acid (Ascorbic Acid 500 Mg Tab) 500 mg PO BID [facility] Last Admin: 03/06/21 22:37 Dose: 500 mg Documented by: Benzonatate (Benzonatate 100 Mg Cap) 100 mg PO Q8HR PRN PRN Reason: Cough Cholecalciferol (Cholecalciferol (Vit D3) 1000 Unit (25 Mcg) Tab) 1,000 unit PO QDAY [facility] Last Admin: 03/06/21 12:13 Dose: 1,000 unit Documented by: Famotidine (Famotidine 20 Mg Tab) 20 mg PO BID [facility] Last Admin: 03/06/21 22:38 Dose: 20 mg Documented by: Ferrous Sulfate (Ferrous Sulfate 325 Mg Tab) 325 mg PO QDAY [facility] Last Admin: 03/06/21 12:14 Dose: 325 mg Documented by: Heparin Sodium (Porcine) (Heparin 5,000 Unit/1 Ml Vial) 5,000 unit SUB-Q Q12HR [facility] Last Admin: 03/06/21 22:37 Dose: 5,000 unit Documented by: Hydromorphone HCl (Hydromorphone 1 Mg/1 Ml Inj) 0.5 mg IV Q12H PRN PRN Reason: Pain , Severe (7-10) Ceftriaxone Sodium (Rocephin/Ns 2 Gm/100 Ml) 2 gm in 100 mls @ 200 mls/hr IV Q24H [facility]; Protocol Stop: 03/09/21 16:29 Last Admin: 03/06/21 18:10 Dose: 200 mls/hr Documented by: Azithromycin (Zithromax/Ns) 500 mg in 250 mls @ 250 mls/hr IV Q24H [facility]; Protocol Stop: 03/09/21 17:59 Last Admin: 03/06/21 18:11 Dose: 250 mls/hr Documented by: Methylprednisolone Sodium Succinate (Methylprednisolone Sod Succinate 40 Mg/1 Ml Inj) 40 mg IV Q8HR [facility] Last Admin: 03/07/21 05:26 Dose: 40 mg Documented by: Ondansetron HCl (Ondansetron 4 Mg/2 Ml Inj) 4 mg IV Q8H PRN PRN Reason: Nausea And Vomiting Oxycodone/Acetaminophen (Oxycodone /Acetaminophen 5-325mg Tab) 1 tab PO Q12H PRN PRN Reason: Pain, Moderate (4-6) Sodium Chloride (Sodium Chloride 0.9% 10 Ml Flush Syringe) 10 ml IV BID [facility] Last Admin: 03/06/21 22:39 Dose: 10 ml Documented by: Sodium Chloride (Sodium Chloride 0.9% 10 Ml Flush Syringe) 10 ml IV PRN PRN PRN Reason: LINE FLUSH Zinc Sulfate (Zinc Sulfate 220 Mg Cap) 220 mg PO BID [facility] Last Admin: 03/06/21 22:37 Dose: 220 mg Documented by: Physical Examination - Physical Exam Narrative exam: Physical exam deferred to reduce risk of transmission of COVID-19. Please refer to primary team's note. - Constitutional Vitals: Vital Signs Temp Pulse Resp BP Pulse Ox 99.0 F 79 20 145/90 96 03/07/21 05:16 03/07/21 05:16 03/07/21 05:16 03/07/21 05:16 03/07/21 05:16 Temperature -Last 24 Hours Temperature 99.0 F Temperature 99.0 F Results - Labs CBC & Chem 7: 03/06/21 05:21 03/06/21 05:21 Assessment and Plan Cultures: Blood culture no growth so far A/P: 40-year-old female past medical history obesity, anemia admitted with COVID-19 #Severe COVID-19 pneumonia: Patient presented with a week of symptoms, chest x-ray with diffuse bilateral infiltrates #Acute hypoxemic respiratory failure: Likely secondary to COVID-19 infection. Currently on 3 L nasal cannula #Obesity #LATONIA: Resolving Recs: -Steroids per primary for 10 days -Remdesivir 200 mg IV q day x 1 followed by 100 mg IV q day x 4 days -Obtain q48-72h inflammatory markers - ferritin, Ddimer, CRP, LDH -Continue ceftriaxone 2 gm IV qday and azithromycin 500 mg PO qday, if procalcitonin <0.25 ng/mL stop antibiotics -Anticoagulation per hospital protocol -Proning as able Thank you for the consult, we will continue to follow. MD Haroon [facility] O: [phone] F: [phone]
[2021-03-07 10:04] LABS: BUN/Creatinine Ratio 18; Blood Urea Nitrogen 16 mg/dL (7-17); Calcium 8.6 mg/dL (8.4-10.2); Hemolysis Index 41
[2021-03-07] MEDS: FERROUS SULFATE 325 MG TAB PO SCH (10:18)
[2021-03-07] MEDS: HEPARIN 5,000 UNIT/1 ML VIAL SUB-Q SCH ×2 (10:18→22:22)
[2021-03-07] MEDS: FAMOTIDINE 20 MG TAB PO SCH ×2 (10:19→22:22)
[2021-03-07] MEDS: ASCORBIC ACID 500 MG TAB PO SCH ×2 (10:19→22:22)
[2021-03-07] MEDS: CHOLECALCIFEROL (VIT D3) 1000 UNIT (25 mcg) TAB PO SCH (10:19)
[2021-03-07] MEDS ORDERED: REMDESIVIR 200 MG in SODIUM CHLORIDE 0.9% 250ML 250 ML IV ONE (11:00)
[2021-03-07] MEDS: ZINC SULFATE 220 MG CAP PO SCH ×2 (11:18→22:23)
[2021-03-07 15:49] LABS: Basophils % (Auto) 0.4 % (0.0-1.8); Hematocrit 34.3 % (30.3-42.9); Hemoglobin 11.8 gm/dl (10.1-14.3); Lymphocytes # (Auto) 0.7 K/mm3 (1.2-5.4); Lymphocytes % (Auto) 8.1 % (13.4-35.0); Mean Corpuscular HGB Conc 34 % (30-34); Mean Corpuscular Volume 85 fl (79-97); Monocytes # (Auto) 0.9 K/mm3 (0.0-0.8); Monocytes % (Auto) 10.6 % (0.0-7.3); Platelet Count 488 K/mm3 (140-440); Red Blood Count 4.06 M/mm3 (3.65-5.03)
[2021-03-07 16:12] LABS: C-Reactive Protein 3.4 mg/dL (0.00-1.30)
[2021-03-07] MEDS: cefTRIAXone/NS 2 GM/100 ML 2 GM/100 ML BAG IV SCH (16:48)
[2021-03-07] MEDS: AZITHROMYCIN/NS 500 MG/250 ML 500 MG/250 ML BAG IV SCH (17:05)
[2021-03-07] MEDS: SODIUM CHLORIDE 0.9% 50 ML IVPB IV SCH (22:20)
[2021-03-08] MEDS: methylPREDNISolone Sod Succinate 40 MG/1 ML INJ IV SCH ×3 (05:28→23:37)
--- NOTE | 2021-03-08 08:09 | Progress Note ---
Assessment and Plan Assessment and plan: Sepsis. COVID-19 pneumonia. Acute hypoxic respiratory failure. Etiology secondary to above. Obesity hypoventilation syndrome/SHERIE History of DVT/PE in 201103/06/2021. Await ID consultation. Continue to trend inflammatory markers. Continue IV antibiotics for now. Patient currently with 3 L O2 and satting 96%. Continue O2 supplementation and BiPAP as clinically indicated. 03/07/2021. Await ID consultation. Continue to trend inflammatory markers. Continue O2 to maintain sats greater than 92%. 03/08/2021. Continue IV steroids and likely transition to dexamethasone. Continue remdesivir for total of 5 days. Follow-up inflammatory markers of ferritin, D-dimer, CRP and LDH. Continue empiric IV antibiotics per ID recommendations. Continue anticoagulation. Prone positioning as able. History Interval history: No new issues overnight. Hospitalist Physical - Constitutional Vitals: Temp Pulse Resp BP Pulse Ox 98.9 F 76 20 146/94 88 03/08/21 05:27 03/08/21 05:27 03/08/21 05:27 03/08/21 05:26 03/08/21 05:27 General appearance: Present: mild distress, obese Results - Labs CBC & Chem 7: 03/07/21 14:39 03/07/21 09:16 Labs: Laboratory Last Values WBC 8.4 K/mm3 (4.5-11.0) 03/07/21 14:39 RBC 4.06 M/mm3 (3.65-5.03) 03/07/21 14:39 Hgb 11.8 gm/dl (10.1-14.3) 03/07/21 14:39 Hct 34.3 % (30.3-42.9) 03/07/21 14:39 MCV 85 fl (79-97) 03/07/21 14:39 MCH 29 pg (28-32) 03/07/21 14:39 MCHC 34 % (30-34) 03/07/21 14:39 RDW 16.0 % (13.2-15.2) H 03/07/21 14:39 Plt Count 488 K/mm3 (140-440) H 03/07/21 14:39 Lymph % (Auto) 8.1 % (13.4-35.0) L 03/07/21 14:39 [place] % (Auto) 10.6 % (0.0-7.3) H 03/07/21 14:39 Eos % (Auto) 0.0 % (0.0-4.3) 03/07/21 14:39 Baso % (Auto) 0.4 % (0.0-1.8) 03/07/21 14:39 Lymph # (Auto) 0.7 K/mm3 (1.2-5.4) L 03/07/21 14:39 [place] # (Auto) 0.9 K/mm3 (0.0-0.8) H 03/07/21 14:39 Eos # (Auto) 0.0 K/mm3 (0.0-0.4) 03/07/21 14:39 Baso # (Auto) 0.0 K/mm3 (0.0-0.1) 03/07/21 14:39 Seg Neutrophils % 80.9 % (40.0-70.0) H 03/07/21 14:39 Seg Neutrophils # 6.8 K/mm3 (1.8-7.7) 03/07/21 14:39 APTT 34.6 Sec. (24.2-36.6) 03/05/21 17:01 D-Dimer 435.68 ng/mlDDU (0-234) H 03/07/21 14:39 ABG pH 7.351 (7.320-7.450) 03/05/21 18:07 POC ABG pCO2 27.3 mmHg (32.0-48.0) L 03/05/21 18:07 POC ABG pO2 95.9 mmHg (83-108) 03/05/21 18:07 POC ABG HCO3 14.8 03/05/21 18:07 ABG O2 Saturation 96.8 (0-100) 03/05/21 18:07 POC ABG Base Excess -9.4 03/05/21 18:07 ABG Hemoglobin 11.7 (12.0-17.5) L 03/05/21 18:07 ABG Oxyhemoglobin 96.1 (94-98) 03/05/21 18:07 ABG Methemoglobin 0.3 (0.0-1.5) 03/05/21 18:07 ABG Sodium 123.8 mmol/L (136.0-145.0) L 03/05/21 18:07 ABG Potassium 4.0 mmol/L (3.40-4.50) 03/05/21 18:07 ABG Chloride 101.0 mmol/L (98-107) 03/05/21 18:07 ABG Glucose 109 mg/dL (65-95) H 03/05/21 18:07 Carboxyhemoglobin 0.4 (0.5-1.5) L 03/05/21 18:07 FiO2 % 32.0 03/05/21 18:07 Sodium 133 mmol/L (137-145) L 03/07/21 09:16 Potassium 5.2 mmol/L (3.6-5.0) H 03/07/21 09:16 Chloride 104.8 mmol/L (98-107) 03/07/21 09:16 Carbon Dioxide 15 mmol/L (22-30) L 03/07/21 09:16 Anion Gap 18 mmol/L 03/07/21 09:16 BUN 16 mg/dL (7-17) 03/07/21 09:16 Creatinine 0.9 mg/dL (0.6-1.2) 03/07/21 09:16 Estimated GFR > 60 ml/min 03/07/21 09:16 BUN/Creatinine Ratio 18 % 03/07/21 09:16 Glucose 124 mg/dL (65-100) H 03/07/21 09:16 Lactic Acid 1.20 mmol/L (0.7-2.0) 03/05/21 19:09 Calcium 8.6 mg/dL (8.4-10.2) 03/07/21 09:16 Ferritin 795.9 ng/mL (10.0-200.0) H 03/07/21 14:39 Total Bilirubin 0.40 mg/dL (0.1-1.2) 03/06/21 05:21 AST 63 units/L (5-40) H 03/06/21 05:21 ALT 43 units/L (7-56) 03/06/21 05:21 Alkaline Phosphatase 52 units/L (35-129) 03/06/21 05:21 Lactate Dehydrogenase 373 units/L (91-180) H 03/07/21 14:39 C-Reactive Protein 3.40 mg/dL (0.00-1.30) H 03/07/21 14:39 Total Protein 6.7 g/dL (6.3-8.2) 03/06/21 05:21 Albumin 3.3 g/dL (3.9-5) L 03/06/21 05:21 Albumin/Globulin Ratio 1.0 % 03/06/21 05:21 Arterial Blood Glucose 109 mg/dL (65-95) H 03/05/21 18:07 Arterial Blood Ionized Calcium 4.3 mg/dL (4.6-5.3) L 03/05/21 18:07 Urine Color Yellow (Yellow) 03/05/21 Unknown Urine Turbidity Slightly-cloudy (Clear) 03/05/21 Unknown Urine pH 5.0 (5.0-7.0) 03/05/21 Unknown Ur Specific [place] 1.010 (1.003-1.030) 03/05/21 Unknown Urine Protein 30 mg/dl mg/dL (Negative) 03/05/21 Unknown Urine Glucose (UA) Neg mg/dL (Negative) 03/05/21 Unknown Urine Ketones Neg mg/dL (Negative) 03/05/21 Unknown Urine Blood Sm (Negative) 03/05/21 Unknown Urine Nitrite Neg (Negative) 03/05/21 Unknown Urine Bilirubin Neg (Negative) 03/05/21 Unknown Urine Urobilinogen < 2.0 mg/dL (<2.0) 03/05/21 Unknown Ur Leukocyte Esterase Neg (Negative) 03/05/21 Unknown Urine WBC (Auto) 6.0 /HPF (0.0-6.0) 03/05/21 Unknown Urine RBC (Auto) 3.0 /HPF (0.0-6.0) 03/05/21 Unknown U Epithel Cells (Auto) 1.0 /HPF (0-13.0) 03/05/21 Unknown Urine Bacteria (Auto) 1+ /HPF (Negative) 03/05/21 Unknown Urine Mucus Few /HPF 03/05/21 Unknown Urine Yeast (Budding) 2+ /HPF 03/05/21 Unknown Microbiology: Microbiology 03/05/21 19:09 Peripheral/Venous Blood Culture - Preliminary NO GROWTH AFTER 48 HOURS 03/05/21 17:01 Peripheral/Venous Blood Culture - Preliminary NO GROWTH AFTER 48 HOURS Monae/IV: Voiding Method Toilet Active Medications - Current Medications Current Medications: Generic Name Dose Route Start Last Admin Trade Name Freq PRN Reason Stop Dose Admin Acetaminophen 650 mg 03/05/21 18:49 Acetaminophen 325 Mg Tab PO Q4H PRN Pain MILD(1-3)/Fever >100.5/STARK Albuterol 2.5 mg 03/05/21 18:49 Albuterol 2.5 Mg/3 Ml Nebu IH Q4HRT PRN Shortness Of Breath Ascorbic Acid 500 mg 03/05/21 22:00 03/07/21 22:22 Ascorbic Acid 500 Mg Tab PO 500 mg BID DEVIKA Administration Benzonatate 100 mg 03/05/21 18:53 Benzonatate 100 Mg Cap PO Q8HR PRN Cough Cholecalciferol 1,000 unit 03/06/21 10:00 03/07/21 10:19 Cholecalciferol (Vit D3) 1000 Unit (25 Mcg) Tab PO 1,000 unit QDAY DEVIKA Administration Famotidine 20 mg 03/05/21 22:00 03/07/21 22:22 Famotidine 20 Mg Tab PO 20 mg BID DEVIKA Administration Ferrous Sulfate 325 mg 03/06/21 10:00 03/07/21 10:18 Ferrous Sulfate 325 Mg Tab PO 325 mg QDAY DEVIKA Administration Heparin Sodium (Porcine) 5,000 unit 03/05/21 22:00 03/07/21 22:22 Heparin 5,000 Unit/1 Ml Vial SUB-Q 5,000 unit Q12HR DEVIKA Administration Hydromorphone HCl 0.5 mg 03/05/21 18:49 Hydromorphone 1 Mg/1 Ml Inj IV Q12H PRN Pain , Severe (7-10) Ceftriaxone Sodium 2 gm in 100 mls @ 200 mls/hr 03/06/21 16:00 03/07/21 16:48 Rocephin/Ns 2 Gm/100 Ml IV 03/09/21 16:29 200 mls/hr Q24H DEVIKA Administration Protocol Azithromycin 500 mg in 250 mls @ 250 mls/hr 03/06/21 17:00 03/07/21 17:05 Zithromax/Ns IV 03/09/21 17:59 250 mls/hr Q24H DEVIKA Administration Protocol REMDESIVIR 100 mg/ Sodium 250 mls @ 500 mls/hr 03/08/21 21:00 Chloride IV 03/11/21 21:29 Q24HR@2100 DEVIKA Methylprednisolone Sodium Succinate 40 mg 03/05/21 22:00 03/08/21 05:28 Methylprednisolone Sod Succinate 40 Mg/1 Ml Inj IV 40 mg Q8HR DEVIKA Administration Ondansetron HCl 4 mg 03/05/21 18:49 Ondansetron 4 Mg/2 Ml Inj IV Q8H PRN Nausea And Vomiting Oxycodone/Acetaminophen 1 tab 03/05/21 18:49 Oxycodone /Acetaminophen 5-325mg Tab PO Q12H PRN Pain, Moderate (4-6) Sodium Chloride 10 ml 03/05/21 22:00 03/07/21 22:22 Sodium Chloride 0.9% 10 Ml Flush Syringe IV 10 ml BID DEVIKA Administration Sodium Chloride 10 ml 03/05/21 18:49 Sodium Chloride 0.9% 10 Ml Flush Syringe IV PRN PRN LINE FLUSH Sodium Chloride 50 ml 03/07/21 13:00 03/07/21 22:20 Sodium Chloride 0.9% 50 Ml Ivpb IV 03/11/21 21:01 Not Given Q24HR@2100 [facility] Zinc Sulfate 220 mg 03/05/21 22:00 03/07/21 22:23 Zinc Sulfate 220 Mg Cap PO 220 mg BID DEVIKA Administration Nutrition/Malnutrition Assess - Dietary Evaluation Nutrition/Malnutrition Findings: Nutrition Notes Start: 03/07/21 08:32 Freq: Status: Active Protocol: Document 03/07/21 08:32 RUSSEL (Rec: 03/07/21 08:33 RUSSEL [id number]) Nutrition Notes Need for Assessment generated from: prism measurer Initial or Follow up Brief Note Subjective/Other Information RN screen for skin risk. No Nico score in chart. Skin intact, no wounds noted. Nutrition Intervention Revisit per MD consult or patient Sign Off request: Additional Comments Please reconsult if needed
[2021-03-08 08:30] LABS: Alanine Aminotransferase 55 units/L (7-56); Albumin 3.2 g/dL (3.9-5); BUN/Creatinine Ratio 18; Blood Urea Nitrogen 14 mg/dL (7-17); Calcium 8.6 mg/dL (8.4-10.2); Hemolysis Index 3
[2021-03-08] MEDS: ZINC SULFATE 220 MG CAP PO SCH ×2 (09:02→23:37)
[2021-03-08] MEDS: FAMOTIDINE 20 MG TAB PO SCH ×2 (09:02→23:38)
[2021-03-08] MEDS: CHOLECALCIFEROL (VIT D3) 1000 UNIT (25 mcg) TAB PO SCH (09:02)
[2021-03-08] MEDS: ASCORBIC ACID 500 MG TAB PO SCH ×2 (09:02→23:38)
[2021-03-08] MEDS: FERROUS SULFATE 325 MG TAB PO SCH (09:02)
[2021-03-08] MEDS: HEPARIN 5,000 UNIT/1 ML VIAL SUB-Q SCH ×2 (09:02→23:37)
--- NOTE | 2021-03-08 13:53 | Progress Note ---
Assessment and Plan Cultures: Blood culture no growth so far A/P: 40-year-old female past medical history obesity, anemia admitted with COVID-19 #Severe COVID-19 pneumonia: Patient presented with a week of symptoms, chest x- ray with diffuse bilateral infiltrates #Acute hypoxemic respiratory failure: Likely secondary to COVID-19 infection. Currently on 2 L nasal cannula #Obesity #LATONIA: Resolving Recs: -Steroids per primary for 10 days -Remdesivir 200 mg IV q day x 1 followed by 100 mg IV q day x 4 days -Obtain q48-72h inflammatory markers - ferritin, Ddimer, CRP, LDH -Procalcitonin low, stopped antibiotics. -Anticoagulation per hospital protocol -Proning as able Thank you for the consult, we will continue to follow. Dalia Guerrier MD [facility] ([facility] O: [phone] F: [phone] Subjective Date of service: 03/08/21 Interval history: Afebrile, normal white count. On 2 L nasal cannula. Objective - Exam Narrative Exam: Physical exam deferred to reduce risk of transmission of COVID-19. Please refer to primary team's note. - Constitutional Vitals: Vital Signs Temp Pulse Resp BP Pulse Ox 98.9 F 76 20 146/94 88 03/08/21 05:27 03/08/21 05:27 03/08/21 05:27 03/08/21 05:26 03/08/21 05:27 Temperature -Last 24 Hours Temperature 98.9 F Temperature 97.7 F - Labs CBC & Chem 7: 03/07/21 14:39 03/08/21 07:45 Labs: Abnormal lab results 03/07/21 03/07/21 03/07/21 Range/Units 14:39 14:39 14:39 RDW 16.0 H (13.2-15.2) % Plt Count 488 H (140-440) K/mm3 Lymph % (Auto) 8.1 L (13.4-35.0) % [place] % (Auto) 10.6 H (0.0-7.3) % Lymph # (Auto) 0.7 L (1.2-5.4) K/mm3 [place] # (Auto) 0.9 H (0.0-0.8) K/mm3 Seg Neutrophils % 80.9 H (40.0-70.0) % D-Dimer 435.68 H (0-234) ng/mlDDU Sodium (137-145) mmol/L Glucose (65-100) mg/dL Ferritin 795.9 H (10.0-200.0) ng/mL AST (5-40) units/L Lactate Dehydrogenase (91-180) units/L C-Reactive Protein (0.00-1.30) mg/dL Albumin (3.9-5) g/dL 03/07/21 03/08/21 Range/Units 14:39 07:45 RDW (13.2-15.2) % Plt Count (140-440) K/mm3 Lymph % (Auto) (13.4-35.0) % [place] % (Auto) (0.0-7.3) % Lymph # (Auto) (1.2-5.4) K/mm3 [place] # (Auto) (0.0-0.8) K/mm3 Seg Neutrophils % (40.0-70.0) % D-Dimer (0-234) ng/mlDDU Sodium 135 L (137-145) mmol/L Glucose 130 H (65-100) mg/dL Ferritin (10.0-200.0) ng/mL AST 42 H (5-40) units/L Lactate Dehydrogenase 373 H (91-180) units/L C-Reactive Protein 3.40 H (0.00-1.30) mg/dL Albumin 3.2 L (3.9-5) g/dL
[2021-03-08] MEDS: cefTRIAXone/NS 2 GM/100 ML 2 GM/100 ML BAG IV SCH (15:14)
[2021-03-08] MEDS: AZITHROMYCIN/NS 500 MG/250 ML 500 MG/250 ML BAG IV SCH (16:02)
[2021-03-08] MEDS: REMDESIVIR 100 MG in SODIUM CHLORIDE 0.9% 250ML 250 ML IV SCH (23:37)
[2021-03-08] MEDS: SODIUM CHLORIDE 0.9% 50 ML IVPB IV SCH (23:37)
[2021-03-09] MEDS: methylPREDNISolone Sod Succinate 40 MG/1 ML INJ IV SCH ×3 (05:41→22:01)
--- NOTE | 2021-03-09 08:41 | Progress Note ---
Assessment and Plan Assessment and plan: Sepsis. COVID-19 pneumonia. Acute hypoxic respiratory failure. Etiology secondary to above. Obesity hypoventilation syndrome/SHERIE History of DVT/PE in 201103/06/2021. Await ID consultation. Continue to trend inflammatory markers. Continue IV antibiotics for now. Patient currently with 3 L O2 and satting 96%. Continue O2 supplementation and BiPAP as clinically indicated. 03/07/2021. Await ID consultation. Continue to trend inflammatory markers. Continue O2 to maintain sats greater than 92%. 03/08/2021. Continue IV steroids and likely transition to dexamethasone. Continue remdesivir for total of 5 days. Follow-up inflammatory markers of ferritin, D-dimer, CRP and LDH. Continue empiric IV antibiotics per ID recommendations. Continue anticoagulation. Prone positioning as able. 03/09 -Patient was on 2 L of oxygen, patient is still complaining shortness of breath. Patient states she is very weak. Patient need PT OT evaluation before discharge. We will check home O2 evaluation. History Interval history: Patient was seen and evaluated this morning Patient was on 2 L of oxygen Complaint shortness of breath Hospitalist Physical - Physical exam Narrative exam: Not in cardiopulmonary distress. The patient is morbidly obese Vital signs as documented. Head exam is unremarkable. No scleral icterus . Neck is without jugular venous distension, thyromegaly, or carotid bruits. Lungs decreased air entry Cardiac exam reveals regular rate and Rhythm. Abdominal exam reveals normal bowel sounds, nontender, no organomegaly. Extremities are nonedematous and both femoral and pedal pulses are normal. 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 No focal weakness. - Constitutional Vitals: Temp Pulse Resp BP Pulse Ox 98.0 F 65 16 143/92 96 03/09/21 04:37 03/09/21 04:37 03/09/21 04:37 03/09/21 04:37 03/09/21 04:37 General appearance: Present: mild distress, obese Results - Labs CBC & Chem 7: 03/07/21 14:39 03/09/21 08:06 Labs: Laboratory Last Values WBC 8.4 K/mm3 (4.5-11.0) 03/07/21 14:39 RBC 4.06 M/mm3 (3.65-5.03) 03/07/21 14:39 Hgb 11.8 gm/dl (10.1-14.3) 03/07/21 14:39 Hct 34.3 % (30.3-42.9) 03/07/21 14:39 MCV 85 fl (79-97) 03/07/21 14:39 MCH 29 pg (28-32) 03/07/21 14:39 MCHC 34 % (30-34) 03/07/21 14:39 RDW 16.0 % (13.2-15.2) H 03/07/21 14:39 Plt Count 488 K/mm3 (140-440) H 03/07/21 14:39 Lymph % (Auto) 8.1 % (13.4-35.0) L 03/07/21 14:39 [place] % (Auto) 10.6 % (0.0-7.3) H 03/07/21 14:39 Eos % (Auto) 0.0 % (0.0-4.3) 03/07/21 14:39 Baso % (Auto) 0.4 % (0.0-1.8) 03/07/21 14:39 Lymph # (Auto) 0.7 K/mm3 (1.2-5.4) L 03/07/21 14:39 [place] # (Auto) 0.9 K/mm3 (0.0-0.8) H 03/07/21 14:39 Eos # (Auto) 0.0 K/mm3 (0.0-0.4) 03/07/21 14:39 Baso # (Auto) 0.0 K/mm3 (0.0-0.1) 03/07/21 14:39 Seg Neutrophils % 80.9 % (40.0-70.0) H 03/07/21 14:39 Seg Neutrophils # 6.8 K/mm3 (1.8-7.7) 03/07/21 14:39 APTT 34.6 Sec. (24.2-36.6) 03/05/21 17:01 D-Dimer 435.68 ng/mlDDU (0-234) H 03/07/21 14:39 ABG pH 7.351 (7.320-7.450) 03/05/21 18:07 POC ABG pCO2 27.3 mmHg (32.0-48.0) L 03/05/21 18:07 POC ABG pO2 95.9 mmHg (83-108) 03/05/21 18:07 POC ABG HCO3 14.8 03/05/21 18:07 ABG O2 Saturation 96.8 (0-100) 03/05/21 18:07 POC ABG Base Excess -9.4 03/05/21 18:07 ABG Hemoglobin 11.7 (12.0-17.5) L 03/05/21 18:07 ABG Oxyhemoglobin 96.1 (94-98) 03/05/21 18:07 ABG Methemoglobin 0.3 (0.0-1.5) 03/05/21 18:07 ABG Sodium 123.8 mmol/L (136.0-145.0) L 03/05/21 18:07 ABG Potassium 4.0 mmol/L (3.40-4.50) 03/05/21 18:07 ABG Chloride 101.0 mmol/L (98-107) 03/05/21 18:07 ABG Glucose 109 mg/dL (65-95) H 03/05/21 18:07 Carboxyhemoglobin 0.4 (0.5-1.5) L 03/05/21 18:07 FiO2 % 32.0 03/05/21 18:07 Sodium 135 mmol/L (137-145) L 03/08/21 07:45 Potassium 4.8 mmol/L (3.6-5.0) 03/08/21 07:45 Chloride 101.3 mmol/L (98-107) 03/08/21 07:45 Carbon Dioxide 25 mmol/L (22-30) D 03/08/21 07:45 Anion Gap 14 mmol/L 03/08/21 07:45 BUN 14 mg/dL (7-17) 03/08/21 07:45 Creatinine 0.8 mg/dL (0.6-1.2) 03/08/21 07:45 Estimated GFR > 60 ml/min 03/08/21 07:45 BUN/Creatinine Ratio 18 % 03/08/21 07:45 Glucose 130 mg/dL (65-100) H 03/08/21 07:45 Lactic Acid 1.20 mmol/L (0.7-2.0) 03/05/21 19:09 Calcium 8.6 mg/dL (8.4-10.2) 03/08/21 07:45 Ferritin 795.9 ng/mL (10.0-200.0) H 03/07/21 14:39 Total Bilirubin 0.40 mg/dL (0.1-1.2) 03/08/21 07:45 AST 42 units/L (5-40) H 03/08/21 07:45 ALT 55 units/L (7-56) 03/08/21 07:45 Alkaline Phosphatase 54 units/L (35-129) 03/08/21 07:45 Lactate Dehydrogenase 373 units/L (91-180) H 03/07/21 14:39 C-Reactive Protein 3.40 mg/dL (0.00-1.30) H 03/07/21 14:39 Total Protein 6.6 g/dL (6.3-8.2) 03/08/21 07:45 Albumin 3.2 g/dL (3.9-5) L 03/08/21 07:45 Albumin/Globulin Ratio 0.9 % 03/08/21 07:45 Procalcitonin < 0.05 ng/mL (<0.15) 03/07/21 14:39 Arterial Blood Glucose 109 mg/dL (65-95) H 03/05/21 18:07 Arterial Blood Ionized Calcium 4.3 mg/dL (4.6-5.3) L 03/05/21 18:07 Urine Color Yellow (Yellow) 03/05/21 Unknown Urine Turbidity Slightly-cloudy (Clear) 03/05/21 Unknown Urine pH 5.0 (5.0-7.0) 03/05/21 Unknown Ur Specific [place] 1.010 (1.003-1.030) 03/05/21 Unknown Urine Protein 30 mg/dl mg/dL (Negative) 03/05/21 Unknown Urine Glucose (UA) Neg mg/dL (Negative) 03/05/21 Unknown Urine Ketones Neg mg/dL (Negative) 03/05/21 Unknown Urine Blood Sm (Negative) 03/05/21 Unknown Urine Nitrite Neg (Negative) 03/05/21 Unknown Urine Bilirubin Neg (Negative) 03/05/21 Unknown Urine Urobilinogen < 2.0 mg/dL (<2.0) 03/05/21 Unknown Ur Leukocyte Esterase Neg (Negative) 03/05/21 Unknown Urine WBC (Auto) 6.0 /HPF (0.0-6.0) 03/05/21 Unknown Urine RBC (Auto) 3.0 /HPF (0.0-6.0) 03/05/21 Unknown U Epithel Cells (Auto) 1.0 /HPF (0-13.0) 03/05/21 Unknown Urine Bacteria (Auto) 1+ /HPF (Negative) 03/05/21 Unknown Urine Mucus Few /HPF 03/05/21 Unknown Urine Yeast (Budding) 2+ /HPF 03/05/21 Unknown Microbiology: Microbiology 03/05/21 19:09 Peripheral/Venous Blood Culture - Preliminary NO GROWTH AFTER 72 HOURS 03/05/21 17:01 Peripheral/Venous Blood Culture - Preliminary NO GROWTH AFTER 72 HOURS Monae/IV: Voiding Method Toilet Active Medications - Current Medications Current Medications: Generic Name Dose Route Start Last Admin Trade Name Freq PRN Reason Stop Dose Admin Acetaminophen 650 mg 03/05/21 18:49 Acetaminophen 325 Mg Tab PO Q4H PRN Pain MILD(1-3)/Fever >100.5/STARK Albuterol 2.5 mg 03/05/21 18:49 Albuterol 2.5 Mg/3 Ml Nebu IH Q4HRT PRN Shortness Of Breath Ascorbic Acid 500 mg 03/05/21 22:00 03/08/21 23:38 Ascorbic Acid 500 Mg Tab PO 500 mg BID DEVIKA Administration Benzonatate 100 mg 03/05/21 18:53 Benzonatate 100 Mg Cap PO Q8HR PRN Cough Cholecalciferol 1,000 unit 03/06/21 10:00 03/08/21 09:02 Cholecalciferol (Vit D3) 1000 Unit (25 Mcg) Tab PO 1,000 unit QDAY DEVIKA Administration Famotidine 20 mg 03/05/21 22:00 03/08/21 23:38 Famotidine 20 Mg Tab PO 20 mg BID DEVIKA Administration Ferrous Sulfate 325 mg 03/06/21 10:00 03/08/21 09:02 Ferrous Sulfate 325 Mg Tab PO 325 mg QDAY DEVIKA Administration Heparin Sodium (Porcine) 5,000 unit 03/05/21 22:00 03/08/21 23:37 Heparin 5,000 Unit/1 Ml Vial SUB-Q 5,000 unit Q12HR DEVIKA Administration Hydromorphone HCl 0.5 mg 03/05/21 18:49 Hydromorphone 1 Mg/1 Ml Inj IV Q12H PRN Pain , Severe (7-10) Ceftriaxone Sodium 2 gm in 100 mls @ 200 mls/hr 03/06/21 16:00 03/08/21 15:14 Rocephin/Ns 2 Gm/100 Ml IV 03/09/21 16:29 200 mls/hr Q24H DEVIKA Administration Protocol Azithromycin 500 mg in 250 mls @ 250 mls/hr 03/06/21 17:00 03/08/21 16:02 Zithromax/Ns IV 03/09/21 17:59 250 mls/hr Q24H DEVIKA Administration Protocol REMDESIVIR 100 mg/ Sodium 250 mls @ 500 mls/hr 03/08/21 21:00 03/08/21 23:37 Chloride IV 03/11/21 21:29 500 mls/hr Q24HR@2100 DEVIKA Administration Methylprednisolone Sodium Succinate 40 mg 03/05/21 22:00 03/09/21 05:41 Methylprednisolone Sod Succinate 40 Mg/1 Ml Inj IV 40 mg Q8HR DEVIKA Administration Ondansetron HCl 4 mg 03/05/21 18:49 Ondansetron 4 Mg/2 Ml Inj IV Q8H PRN Nausea And Vomiting Oxycodone/Acetaminophen 1 tab 03/05/21 18:49 Oxycodone /Acetaminophen 5-325mg Tab PO Q12H PRN Pain, Moderate (4-6) Sodium Chloride 10 ml 03/05/21 22:00 03/08/21 23:38 Sodium Chloride 0.9% 10 Ml Flush Syringe IV 10 ml BID DEVIKA Administration Sodium Chloride 10 ml 03/05/21 18:49 Sodium Chloride 0.9% 10 Ml Flush Syringe IV PRN PRN LINE FLUSH Sodium Chloride 50 ml 03/07/21 13:00 03/08/21 23:37 Sodium Chloride 0.9% 50 Ml Ivpb IV 03/11/21 21:01 50 ml Q24HR@2100 DEVIKA Administration Zinc Sulfate 220 mg 03/05/21 22:00 03/08/21 23:37 Zinc Sulfate 220 Mg Cap PO 220 mg BID DEVIKA Administration Nutrition/Malnutrition Assess - Dietary Evaluation Nutrition/Malnutrition Findings: Nutrition Notes Start: 03/07/21 08:32 Freq: Status: Active Protocol: Document 03/07/21 08:32 RUSSEL (Rec: 03/07/21 08:33 RUSSEL [id number]) Nutrition Notes 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 No Nico score in chart. Skin intact, no wounds noted. Nutrition Intervention Revisit per MD consult or patient Sign Off request: Additional Comments Please reconsult if needed
[2021-03-09 09:00] LABS: Alanine Aminotransferase 45 units/L (7-56); Albumin 3.4 g/dL (3.9-5); Blood Urea Nitrogen 11 mg/dL (7-17); Calcium 8.7 mg/dL (8.4-10.2); Hemolysis Index 0
[2021-03-09 09:02] LABS: BUN/Creatinine Ratio 16
[2021-03-09] MEDS: ZINC SULFATE 220 MG CAP PO SCH ×2 (09:28→22:00)
[2021-03-09] MEDS: FAMOTIDINE 20 MG TAB PO SCH ×2 (09:28→22:00)
[2021-03-09] MEDS: CHOLECALCIFEROL (VIT D3) 1000 UNIT (25 mcg) TAB PO SCH (09:28)
[2021-03-09] MEDS: FERROUS SULFATE 325 MG TAB PO SCH (09:28)
[2021-03-09] MEDS: ASCORBIC ACID 500 MG TAB PO SCH ×2 (09:28→22:00)
[2021-03-09] MEDS: HEPARIN 5,000 UNIT/1 ML VIAL SUB-Q SCH ×2 (09:28→22:01)
--- NOTE | 2021-03-09 13:03 | Progress Note ---
Assessment and Plan Cultures: Blood culture no growth so far A/P: 40-year-old female past medical history obesity, anemia admitted with COVID-19 #Severe COVID-19 pneumonia: Patient presented with a week of symptoms, chest x- ray with diffuse bilateral infiltrates #Acute hypoxemic respiratory failure: Likely secondary to COVID-19 infection. Currently on 2 L nasal cannula #Obesity #LATONIA: Resolving Recs: -Steroids per primary for 10 days -Remdesivir 200 mg IV q day x 1 followed by 100 mg IV q day x 4 days -Obtain q48-72h inflammatory markers - ferritin, Ddimer, CRP, LDH -Procalcitonin low, stopped antibiotics. -Anticoagulation per hospital protocol -Proning as able Thank you for the consult, we will continue to follow. No need to stay to complete 5 days remdesivir if otherwise improved. Dalia Guerrier MD [facility] O: [phone] F: [phone] Subjective Date of service: 03/09/21 Interval history: Afebrile, normal white count. Currently on 2 L nasal cannula. Objective - Exam Narrative Exam: Physical exam deferred to reduce risk of transmission of COVID-19. Please refer to primary team's note. - Constitutional Vitals: Vital Signs Temp Pulse Resp BP Pulse Ox 98.0 F 65 16 143/92 96 03/09/21 04:37 03/09/21 04:37 03/09/21 04:37 03/09/21 04:37 03/09/21 10:00 Temperature -Last 24 Hours Temperature 98.0 F Temperature 98.4 F Temperature 98.7 F - Labs CBC & Chem 7: 03/07/21 14:39 03/09/21 08:06 Labs: Abnormal lab results 03/09/21 Range/Units 08:06 Potassium 5.4 H (3.6-5.0) mmol/L Glucose 133 H (65-100) mg/dL Albumin 3.4 L (3.9-5) g/dL
[2021-03-09] MEDS: SODIUM CHLORIDE 0.9% 50 ML IVPB IV SCH (21:59)
[2021-03-09] MEDS: REMDESIVIR 100 MG in SODIUM CHLORIDE 0.9% 250ML 250 ML IV SCH (21:59)
[2021-03-10] MEDS: methylPREDNISolone Sod Succinate 40 MG/1 ML INJ IV SCH ×3 (05:58→22:16)
[2021-03-10 06:35] LABS: Alanine Aminotransferase 43 units/L (7-56); Albumin 2.9 g/dL (3.9-5); Blood Urea Nitrogen 13 mg/dL (7-17); Hemolysis Index 0
[2021-03-10 06:36] LABS: BUN/Creatinine Ratio 19
--- NOTE | 2021-03-10 08:34 | Progress Note ---
Assessment and Plan Assessment and plan: Sepsis. COVID-19 pneumonia. Acute hypoxic respiratory failure. Etiology secondary to above. Obesity hypoventilation syndrome/SHERIE History of DVT/PE in 201103/06/2021. Await ID consultation. Continue to trend inflammatory markers. Continue IV antibiotics for now. Patient currently with 3 L O2 and satting 96%. Continue O2 supplementation and BiPAP as clinically indicated. 03/07/2021. Await ID consultation. Continue to trend inflammatory markers. Continue O2 to maintain sats greater than 92%. 03/08/2021. Continue IV steroids and likely transition to dexamethasone. Continue remdesivir for total of 5 days. Follow-up inflammatory markers of ferritin, D-dimer, CRP and LDH. Continue empiric IV antibiotics per ID recommendations. Continue anticoagulation. Prone positioning as able. 03/09 -Patient was on 2 L of oxygen, patient is still complaining shortness of breath. Patient states she is very weak. Patient need PT OT evaluation before discharge. We will check home O2 evaluation. 03/10; continue Decadron and remdesivir. PT evaluated and recommend home health. Patient is on 4 L of oxygen and titrate as tolerated. History Interval history: Patient was seen and evaluated this morning Patient was on 4 L of oxygen Complains shortness of breath Hospitalist Physical - Physical exam Narrative exam: Not in cardiopulmonary distress. The patient is morbidly obese Vital signs as documented. Head exam is unremarkable. No scleral icterus . Neck is without jugular venous distension, thyromegaly, or carotid bruits. Lungs decreased air entry Cardiac exam reveals regular rate and Rhythm. Abdominal exam reveals normal bowel sounds, nontender, no organomegaly. Extremities are nonedematous and both femoral and pedal pulses are normal. 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 No focal weakness. - Constitutional Vitals: Temp Pulse Resp BP Pulse Ox 97.5 F L 68 16 130/91 92 03/10/21 04:35 03/09/21 21:00 03/10/21 04:35 03/10/21 04:35 03/10/21 02:00 General appearance: Present: mild distress, obese Results - Labs CBC & Chem 7: 03/07/21 14:39 03/10/21 05:33 Labs: Laboratory Last Values WBC 8.4 K/mm3 (4.5-11.0) 03/07/21 14:39 RBC 4.06 M/mm3 (3.65-5.03) 03/07/21 14:39 Hgb 11.8 gm/dl (10.1-14.3) 03/07/21 14:39 Hct 34.3 % (30.3-42.9) 03/07/21 14:39 MCV 85 fl (79-97) 03/07/21 14:39 MCH 29 pg (28-32) 03/07/21 14:39 MCHC 34 % (30-34) 03/07/21 14:39 RDW 16.0 % (13.2-15.2) H 03/07/21 14:39 Plt Count 488 K/mm3 (140-440) H 03/07/21 14:39 Lymph % (Auto) 8.1 % (13.4-35.0) L 03/07/21 14:39 [place] % (Auto) 10.6 % (0.0-7.3) H 03/07/21 14:39 Eos % (Auto) 0.0 % (0.0-4.3) 03/07/21 14:39 Baso % (Auto) 0.4 % (0.0-1.8) 03/07/21 14:39 Lymph # (Auto) 0.7 K/mm3 (1.2-5.4) L 03/07/21 14:39 [place] # (Auto) 0.9 K/mm3 (0.0-0.8) H 03/07/21 14:39 Eos # (Auto) 0.0 K/mm3 (0.0-0.4) 03/07/21 14:39 Baso # (Auto) 0.0 K/mm3 (0.0-0.1) 03/07/21 14:39 Seg Neutrophils % 80.9 % (40.0-70.0) H 03/07/21 14:39 Seg Neutrophils # 6.8 K/mm3 (1.8-7.7) 03/07/21 14:39 APTT 34.6 Sec. (24.2-36.6) 03/05/21 17:01 D-Dimer 435.68 ng/mlDDU (0-234) H 03/07/21 14:39 ABG pH 7.351 (7.320-7.450) 03/05/21 18:07 POC ABG pCO2 27.3 mmHg (32.0-48.0) L 03/05/21 18:07 POC ABG pO2 95.9 mmHg (83-108) 03/05/21 18:07 POC ABG HCO3 14.8 03/05/21 18:07 ABG O2 Saturation 96.8 (0-100) 03/05/21 18:07 POC ABG Base Excess -9.4 03/05/21 18:07 ABG Hemoglobin 11.7 (12.0-17.5) L 03/05/21 18:07 ABG Oxyhemoglobin 96.1 (94-98) 03/05/21 18:07 ABG Methemoglobin 0.3 (0.0-1.5) 03/05/21 18:07 ABG Sodium 123.8 mmol/L (136.0-145.0) L 03/05/21 18:07 ABG Potassium 4.0 mmol/L (3.40-4.50) 03/05/21 18:07 ABG Chloride 101.0 mmol/L (98-107) 03/05/21 18:07 ABG Glucose 109 mg/dL (65-95) H 03/05/21 18:07 Carboxyhemoglobin 0.4 (0.5-1.5) L 03/05/21 18:07 FiO2 % 32.0 03/05/21 18:07 Sodium 136 mmol/L (137-145) L 03/10/21 05:33 Potassium 4.3 mmol/L (3.6-5.0) D 03/10/21 05:33 Chloride 100.6 mmol/L (98-107) 03/10/21 05:33 Carbon Dioxide 27 mmol/L (22-30) 03/10/21 05:33 Anion Gap 13 mmol/L 03/10/21 05:33 BUN 13 mg/dL (7-17) 03/10/21 05:33 Creatinine 0.7 mg/dL (0.6-1.2) 03/10/21 05:33 Estimated GFR > 60 ml/min 03/10/21 05:33 BUN/Creatinine Ratio 19 % 03/10/21 05:33 Glucose 139 mg/dL (65-100) H 03/10/21 05:33 Lactic Acid 1.20 mmol/L (0.7-2.0) 03/05/21 19:09 Calcium 8.0 mg/dL (8.4-10.2) L 03/10/21 05:33 Ferritin 795.9 ng/mL (10.0-200.0) H 03/07/21 14:39 Total Bilirubin 0.20 mg/dL (0.1-1.2) 03/10/21 05:33 AST 27 units/L (5-40) 03/10/21 05:33 ALT 43 units/L (7-56) 03/10/21 05:33 Alkaline Phosphatase 50 units/L (35-129) 03/10/21 05:33 Lactate Dehydrogenase 373 units/L (91-180) H 03/07/21 14:39 C-Reactive Protein 3.40 mg/dL (0.00-1.30) H 03/07/21 14:39 Total Protein 6.3 g/dL (6.3-8.2) 03/10/21 05:33 Albumin 2.9 g/dL (3.9-5) L 03/10/21 05:33 Albumin/Globulin Ratio 0.9 % 03/10/21 05:33 Procalcitonin < 0.05 ng/mL (<0.15) 03/07/21 14:39 Arterial Blood Glucose 109 mg/dL (65-95) H 03/05/21 18:07 Arterial Blood Ionized Calcium 4.3 mg/dL (4.6-5.3) L 03/05/21 18:07 Urine Color Yellow (Yellow) 03/05/21 Unknown Urine Turbidity Slightly-cloudy (Clear) 03/05/21 Unknown Urine pH 5.0 (5.0-7.0) 03/05/21 Unknown Ur Specific [place] 1.010 (1.003-1.030) 03/05/21 Unknown Urine Protein 30 mg/dl mg/dL (Negative) 03/05/21 Unknown Urine Glucose (UA) Neg mg/dL (Negative) 03/05/21 Unknown Urine Ketones Neg mg/dL (Negative) 03/05/21 Unknown Urine Blood Sm (Negative) 03/05/21 Unknown Urine Nitrite Neg (Negative) 03/05/21 Unknown Urine Bilirubin Neg (Negative) 03/05/21 Unknown Urine Urobilinogen < 2.0 mg/dL (<2.0) 03/05/21 Unknown Ur Leukocyte Esterase Neg (Negative) 03/05/21 Unknown Urine WBC (Auto) 6.0 /HPF (0.0-6.0) 03/05/21 Unknown Urine RBC (Auto) 3.0 /HPF (0.0-6.0) 03/05/21 Unknown U Epithel Cells (Auto) 1.0 /HPF (0-13.0) 03/05/21 Unknown Urine Bacteria (Auto) 1+ /HPF (Negative) 03/05/21 Unknown Urine Mucus Few /HPF 03/05/21 Unknown Urine Yeast (Budding) 2+ /HPF 03/05/21 Unknown Microbiology: Microbiology 03/05/21 19:09 Peripheral/Venous Blood Culture - Preliminary NO GROWTH AFTER 4 DAYS 03/05/21 17:01 Peripheral/Venous Blood Culture - Preliminary NO GROWTH AFTER 4 DAYS Monae/IV: Voiding Method Toilet Active Medications - Current Medications Current Medications: Generic Name Dose Route Start Last Admin Trade Name Freq PRN Reason Stop Dose Admin Acetaminophen 650 mg 03/05/21 18:49 Acetaminophen 325 Mg Tab PO Q4H PRN Pain MILD(1-3)/Fever >100.5/STARK Albuterol 2.5 mg 03/05/21 18:49 Albuterol 2.5 Mg/3 Ml Nebu IH Q4HRT PRN Shortness Of Breath Ascorbic Acid 500 mg 03/05/21 22:00 03/09/21 22:00 Ascorbic Acid 500 Mg Tab PO 500 mg BID DEVIKA Administration Benzonatate 100 mg 03/05/21 18:53 03/09/21 22:00 Benzonatate 100 Mg Cap PO 100 mg Q8HR PRN Administration Cough Cholecalciferol 1,000 unit 03/06/21 10:00 03/09/21 09:28 Cholecalciferol (Vit D3) 1000 Unit (25 Mcg) Tab PO 1,000 unit QDAY DEVIKA Administration Famotidine 20 mg 03/05/21 22:00 03/09/21 22:00 Famotidine 20 Mg Tab PO 20 mg BID DEVIKA Administration Ferrous Sulfate 325 mg 03/06/21 10:00 03/09/21 09:28 Ferrous Sulfate 325 Mg Tab PO 325 mg QDAY DEVIKA Administration Heparin Sodium (Porcine) 5,000 unit 03/05/21 22:00 03/09/21 22:01 Heparin 5,000 Unit/1 Ml Vial SUB-Q 5,000 unit Q12HR DEVIKA Administration Hydromorphone HCl 0.5 mg 03/05/21 18:49 Hydromorphone 1 Mg/1 Ml Inj IV Q12H PRN Pain , Severe (7-10) REMDESIVIR 100 mg/ Sodium 250 mls @ 500 mls/hr 03/08/21 21:00 03/09/21 21:59 Chloride IV 03/11/21 21:29 500 mls/hr Q24HR@2100 DEVIKA Administration Methylprednisolone Sodium Succinate 40 mg 03/05/21 22:00 03/10/21 05:58 Methylprednisolone Sod Succinate 40 Mg/1 Ml Inj IV 40 mg Q8HR DEVIKA Administration Ondansetron HCl 4 mg 03/05/21 18:49 Ondansetron 4 Mg/2 Ml Inj IV Q8H PRN Nausea And Vomiting Oxycodone/Acetaminophen 1 tab 03/05/21 18:49 03/09/21 22:25 Oxycodone /Acetaminophen 5-325mg Tab PO 1 tab Q12H PRN Administration Pain, Moderate (4-6) Sodium Chloride 10 ml 03/05/21 22:00 03/09/21 22:01 Sodium Chloride 0.9% 10 Ml Flush Syringe IV 10 ml BID DEVIKA Administration Sodium Chloride 10 ml 03/05/21 18:49 Sodium Chloride 0.9% 10 Ml Flush Syringe IV PRN PRN LINE FLUSH Sodium Chloride 50 ml 03/07/21 13:00 03/09/21 21:59 Sodium Chloride 0.9% 50 Ml Ivpb IV 03/11/21 21:01 50 ml Q24HR@2100 DEVIKA Administration Zinc Sulfate 220 mg 03/05/21 22:00 03/09/21 22:00 Zinc Sulfate 220 Mg Cap PO 220 mg BID DEVIKA Administration Nutrition/Malnutrition Assess - Dietary Evaluation Nutrition/Malnutrition Findings: Nutrition Notes Start: 03/07/21 08:32 Freq: Status: Active Protocol: Document 03/07/21 08:32 RUSSEL (Rec: 03/07/21 08:33 RUSSEL [id number]) Nutrition Notes 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 No Nico score in chart. Skin intact, no wounds noted. Nutrition Intervention Revisit per MD consult or patient Sign Off request: Additional Comments Please reconsult if needed
[2021-03-10] MEDS: HEPARIN 5,000 UNIT/1 ML VIAL SUB-Q SCH ×2 (09:51→22:17)
[2021-03-10] MEDS: FAMOTIDINE 20 MG TAB PO SCH ×2 (09:51→22:16)
[2021-03-10] MEDS: FERROUS SULFATE 325 MG TAB PO SCH (09:51)
[2021-03-10] MEDS: ZINC SULFATE 220 MG CAP PO SCH ×2 (09:51→22:16)
[2021-03-10] MEDS: ASCORBIC ACID 500 MG TAB PO SCH ×2 (09:51→22:16)
[2021-03-10] MEDS: CHOLECALCIFEROL (VIT D3) 1000 UNIT (25 mcg) TAB PO SCH (09:52)
--- NOTE | 2021-03-10 16:57 | Progress Note ---
Assessment and Plan Cultures: Blood culture no growth so far A/P: 40-year-old female past medical history obesity, anemia admitted with COVID-19 #Severe COVID-19 pneumonia: Patient presented with a week of symptoms, chest x- ray with diffuse bilateral infiltrates #Acute hypoxemic respiratory failure: Likely secondary to COVID-19 infection. Currently on 2 L nasal cannula #Obesity #LATONIA: Resolving Recs: -Steroids per primary for 10 days -Remdesivir 200 mg IV q day x 1 followed by 100 mg IV q day x 4 days -Obtain q48-72h inflammatory markers - ferritin, Ddimer, CRP, LDH -Anticoagulation per hospital protocol -Proning as able Thank you for the consult, we will continue to follow. No need to stay to complete 5 days remdesivir if otherwise improved. Dalia Guerrier MD [facility] O: [phone] F: [phone] Subjective Date of service: 03/10/21 Interval history: Afebrile, normal white count. Remains on 2 L nasal cannula. Objective - Exam Narrative Exam: Physical exam deferred to reduce risk of transmission of COVID-19. Please refer to primary team's note. - Constitutional Vitals: Vital Signs Temp Pulse Resp BP Pulse Ox 97.5 F L 68 16 130/91 96 03/10/21 04:35 03/09/21 21:00 03/10/21 04:35 03/10/21 04:35 03/10/21 11:45 Temperature -Last 24 Hours Temperature 97.5 F Temperature 98.7 F - Labs CBC & Chem 7: 03/07/21 14:39 03/10/21 05:33 Labs: Abnormal lab results 03/10/21 Range/Units 05:33 Sodium 136 L (137-145) mmol/L Glucose 139 H (65-100) mg/dL Calcium 8.0 L (8.4-10.2) mg/dL Albumin 2.9 L (3.9-5) g/dL
[2021-03-10] MEDS: REMDESIVIR 100 MG in SODIUM CHLORIDE 0.9% 250ML 250 ML IV SCH (22:15)
[2021-03-10] MEDS: SODIUM CHLORIDE 0.9% 50 ML IVPB IV SCH (22:20)
[2021-03-11] MEDS: methylPREDNISolone Sod Succinate 40 MG/1 ML INJ IV SCH (06:12)
[2021-03-11 07:03] LABS: Alanine Aminotransferase 41 units/L (7-56); Albumin 2.8 g/dL (3.9-5); Blood Urea Nitrogen 12 mg/dL (7-17); Calcium 8.9 mg/dL (8.4-10.2); Hemolysis Index 4
[2021-03-11 07:04] LABS: BUN/Creatinine Ratio 20
--- NOTE | 2021-03-11 08:24 | Progress Note ---
Assessment and Plan Assessment and plan: Sepsis. COVID-19 pneumonia. Acute hypoxic respiratory failure. Etiology secondary to above. Obesity hypoventilation syndrome/SHERIE History of DVT/PE in 201103/06/2021. Await ID consultation. Continue to trend inflammatory markers. Continue IV antibiotics for now. Patient currently with 3 L O2 and satting 96%. Continue O2 supplementation and BiPAP as clinically indicated. 03/07/2021. Await ID consultation. Continue to trend inflammatory markers. Continue O2 to maintain sats greater than 92%. 03/08/2021. Continue IV steroids and likely transition to dexamethasone. Continue remdesivir for total of 5 days. Follow-up inflammatory markers of ferritin, D-dimer, CRP and LDH. Continue empiric IV antibiotics per ID recommendations. Continue anticoagulation. Prone positioning as able. 03/09 -Patient was on 2 L of oxygen, patient is still complaining shortness of breath. Patient states she is very weak. Patient need PT OT evaluation before discharge. We will check home O2 evaluation. 03/10; continue Decadron and remdesivir. PT evaluated and recommend home health. Patient is on 4 L of oxygen and titrate as tolerated. 03/11; continues Decadron, will finish remdesivir tonight. Patient is on 2 L of oxygen. Check home O2 evaluation. History Interval history: Patient was seen and evaluated this morning Patient was on 2L of oxygen Complains shortness of breath Hospitalist Physical - Physical exam Narrative exam: Not in cardiopulmonary distress. The patient is morbidly obese Vital signs as documented. Head exam is unremarkable. No scleral icterus . Neck is without jugular venous distension, thyromegaly, or carotid bruits. Lungs decreased air entry Cardiac exam reveals regular rate and Rhythm. Abdominal exam reveals normal bowel sounds, nontender, no organomegaly. Extremities are nonedematous and both femoral and pedal pulses are normal. INDUSTRIAL THERAPIST: Alert and oriented 3. No focal weakness. - Constitutional Vitals: Temp Pulse Resp BP Pulse Ox 98.0 F 60 19 132/80 96 03/10/21 21:41 03/10/21 21:41 03/10/21 21:41 03/10/21 21:41 03/10/21 22:00 General appearance: Present: mild distress, obese Results - Labs CBC & Chem 7: 03/07/21 14:39 03/11/21 06:25 Labs: Laboratory Last Values WBC 8.4 K/mm3 (4.5-11.0) 03/07/21 14:39 RBC 4.06 M/mm3 (3.65-5.03) 03/07/21 14:39 Hgb 11.8 gm/dl (10.1-14.3) 03/07/21 14:39 Hct 34.3 % (30.3-42.9) 03/07/21 14:39 MCV 85 fl (79-97) 03/07/21 14:39 MCH 29 pg (28-32) 03/07/21 14:39 MCHC 34 % (30-34) 03/07/21 14:39 RDW 16.0 % (13.2-15.2) H 03/07/21 14:39 Plt Count 488 K/mm3 (140-440) H 03/07/21 14:39 Lymph % (Auto) 8.1 % (13.4-35.0) L 03/07/21 14:39 [place] % (Auto) 10.6 % (0.0-7.3) H 03/07/21 14:39 Eos % (Auto) 0.0 % (0.0-4.3) 03/07/21 14:39 Baso % (Auto) 0.4 % (0.0-1.8) 03/07/21 14:39 Lymph # (Auto) 0.7 K/mm3 (1.2-5.4) L 03/07/21 14:39 [place] # (Auto) 0.9 K/mm3 (0.0-0.8) H 03/07/21 14:39 Eos # (Auto) 0.0 K/mm3 (0.0-0.4) 03/07/21 14:39 Baso # (Auto) 0.0 K/mm3 (0.0-0.1) 03/07/21 14:39 Seg Neutrophils % 80.9 % (40.0-70.0) H 03/07/21 14:39 Seg Neutrophils # 6.8 K/mm3 (1.8-7.7) 03/07/21 14:39 APTT 34.6 Sec. (24.2-36.6) 03/05/21 17:01 D-Dimer 435.68 ng/mlDDU (0-234) H 03/07/21 14:39 ABG pH 7.351 (7.320-7.450) 03/05/21 18:07 POC ABG pCO2 27.3 mmHg (32.0-48.0) L 03/05/21 18:07 POC ABG pO2 95.9 mmHg (83-108) 03/05/21 18:07 POC ABG HCO3 14.8 03/05/21 18:07 ABG O2 Saturation 96.8 (0-100) 03/05/21 18:07 POC ABG Base Excess -9.4 03/05/21 18:07 ABG Hemoglobin 11.7 (12.0-17.5) L 03/05/21 18:07 ABG Oxyhemoglobin 96.1 (94-98) 03/05/21 18:07 ABG Methemoglobin 0.3 (0.0-1.5) 03/05/21 18:07 ABG Sodium 123.8 mmol/L (136.0-145.0) L 03/05/21 18:07 ABG Potassium 4.0 mmol/L (3.40-4.50) 03/05/21 18:07 ABG Chloride 101.0 mmol/L (98-107) 03/05/21 18:07 ABG Glucose 109 mg/dL (65-95) H 03/05/21 18:07 Carboxyhemoglobin 0.4 (0.5-1.5) L 03/05/21 18:07 FiO2 % 32.0 03/05/21 18:07 Sodium 137 mmol/L (137-145) 03/11/21 06:25 Potassium 4.2 mmol/L (3.6-5.0) 03/11/21 06:25 Chloride 99.3 mmol/L (98-107) 03/11/21 06:25 Carbon Dioxide 32 mmol/L (22-30) H 03/11/21 06:25 Anion Gap 10 mmol/L 03/11/21 06:25 BUN 12 mg/dL (7-17) 03/11/21 06:25 Creatinine 0.6 mg/dL (0.6-1.2) 03/11/21 06:25 Estimated GFR > 60 ml/min 03/11/21 06:25 BUN/Creatinine Ratio 20 % 03/11/21 06:25 Glucose 135 mg/dL (65-100) H 03/11/21 06:25 Lactic Acid 1.20 mmol/L (0.7-2.0) 03/05/21 19:09 Calcium 8.9 mg/dL (8.4-10.2) 03/11/21 06:25 Ferritin 795.9 ng/mL (10.0-200.0) H 03/07/21 14:39 Total Bilirubin 0.20 mg/dL (0.1-1.2) 03/11/21 06:25 AST 25 units/L (5-40) 03/11/21 06:25 ALT 41 units/L (7-56) 03/11/21 06:25 Alkaline Phosphatase 47 units/L (35-129) 03/11/21 06:25 Lactate Dehydrogenase 373 units/L (91-180) H 03/07/21 14:39 C-Reactive Protein 3.40 mg/dL (0.00-1.30) H 03/07/21 14:39 Total Protein 6.0 g/dL (6.3-8.2) L 03/11/21 06:25 Albumin 2.8 g/dL (3.9-5) L 03/11/21 06:25 Albumin/Globulin Ratio 0.9 % 03/11/21 06:25 Procalcitonin < 0.05 ng/mL (<0.15) 03/07/21 14:39 Arterial Blood Glucose 109 mg/dL (65-95) H 03/05/21 18:07 Arterial Blood Ionized Calcium 4.3 mg/dL (4.6-5.3) L 03/05/21 18:07 Urine Color Yellow (Yellow) 03/05/21 Unknown Urine Turbidity Slightly-cloudy (Clear) 03/05/21 Unknown Urine pH 5.0 (5.0-7.0) 03/05/21 Unknown Ur Specific [place] 1.010 (1.003-1.030) 03/05/21 Unknown Urine Protein 30 mg/dl mg/dL (Negative) 03/05/21 Unknown Urine Glucose (UA) Neg mg/dL (Negative) 03/05/21 Unknown Urine Ketones Neg mg/dL (Negative) 03/05/21 Unknown Urine Blood Sm (Negative) 03/05/21 Unknown Urine Nitrite Neg (Negative) 03/05/21 Unknown Urine Bilirubin Neg (Negative) 03/05/21 Unknown Urine Urobilinogen < 2.0 mg/dL (<2.0) 03/05/21 Unknown Ur Leukocyte Esterase Neg (Negative) 03/05/21 Unknown Urine WBC (Auto) 6.0 /HPF (0.0-6.0) 03/05/21 Unknown Urine RBC (Auto) 3.0 /HPF (0.0-6.0) 03/05/21 Unknown U Epithel Cells (Auto) 1.0 /HPF (0-13.0) 03/05/21 Unknown Urine Bacteria (Auto) 1+ /HPF (Negative) 03/05/21 Unknown Urine Mucus Few /HPF 03/05/21 Unknown Urine Yeast (Budding) 2+ /HPF 03/05/21 Unknown Microbiology: Microbiology 03/05/21 19:09 Peripheral/Venous Blood Culture - Final NO GROWTH AFTER 5 DAYS 03/05/21 17:01 Peripheral/Venous Blood Culture - Final NO GROWTH AFTER 5 DAYS Monae/IV: Voiding Method Toilet Active Medications - Current Medications Current Medications: Generic Name Dose Route Start Last Admin Trade Name Freq PRN Reason Stop Dose Admin Acetaminophen 650 mg 03/05/21 18:49 Acetaminophen 325 Mg Tab PO Q4H PRN Pain MILD(1-3)/Fever >100.5/STARK Albuterol 2.5 mg 03/05/21 18:49 Albuterol 2.5 Mg/3 Ml Nebu IH Q4HRT PRN Shortness Of Breath Ascorbic Acid 500 mg 03/05/21 22:00 03/10/21 22:16 Ascorbic Acid 500 Mg Tab PO 500 mg BID DEVIKA Administration Benzonatate 100 mg 03/05/21 18:53 03/09/21 22:00 Benzonatate 100 Mg Cap PO 100 mg Q8HR PRN Administration Cough Cholecalciferol 1,000 unit 03/06/21 10:00 03/10/21 09:52 Cholecalciferol (Vit D3) 1000 Unit (25 Mcg) Tab PO 1,000 unit QDAY DEVIKA Administration Famotidine 20 mg 03/05/21 22:00 03/10/21 22:16 Famotidine 20 Mg Tab PO 20 mg BID DEVIKA Administration Ferrous Sulfate 325 mg 03/06/21 10:00 03/10/21 09:51 Ferrous Sulfate 325 Mg Tab PO 325 mg QDAY DEVIKA Administration Heparin Sodium (Porcine) 5,000 unit 03/05/21 22:00 03/10/21 22:17 Heparin 5,000 Unit/1 Ml Vial SUB-Q 5,000 unit Q12HR DEVIKA Administration Hydromorphone HCl 0.5 mg 03/05/21 18:49 Hydromorphone 1 Mg/1 Ml Inj IV Q12H PRN Pain , Severe (7-10) REMDESIVIR 100 mg/ Sodium 250 mls @ 500 mls/hr 03/08/21 21:00 03/10/21 22:15 Chloride IV 03/11/21 21:29 500 mls/hr Q24HR@2100 DEVIKA Administration Ondansetron HCl 4 mg 03/05/21 18:49 Ondansetron 4 Mg/2 Ml Inj IV Q8H PRN Nausea And Vomiting Oxycodone/Acetaminophen 1 tab 03/05/21 18:49 03/09/21 22:25 Oxycodone /Acetaminophen 5-325mg Tab PO 1 tab Q12H PRN Administration Pain, Moderate (4-6) Prednisone 40 mg 03/11/21 10:00 Prednisone 20 Mg Tab PO QDAY DEVIKA Sodium Chloride 10 ml 03/05/21 22:00 03/10/21 22:21 Sodium Chloride 0.9% 10 Ml Flush Syringe IV 10 ml BID DEVIKA Administration Sodium Chloride 10 ml 03/05/21 18:49 Sodium Chloride 0.9% 10 Ml Flush Syringe IV PRN PRN LINE FLUSH Sodium Chloride 50 ml 03/07/21 13:00 03/10/21 22:20 Sodium Chloride 0.9% 50 Ml Ivpb IV 03/11/21 21:01 50 ml Q24HR@2100 DEVIKA Administration Zinc Sulfate 220 mg 03/05/21 22:00 03/10/21 22:16 Zinc Sulfate 220 Mg Cap PO 220 mg BID DEVIKA Administration Nutrition/Malnutrition Assess - Dietary Evaluation Nutrition/Malnutrition Findings: Nutrition Notes Start: 03/07/21 08:32 Freq: Status: Active Protocol: Document 03/07/21 08:32 RUSSEL (Rec: 03/07/21 08:33 RUSSEL [id number]) Nutrition Notes Need for Assessment generated from: rougher operator Initial or Follow up Brief Note Subjective/Other Information RN screen for skin risk. No Nico score in chart. Skin intact, no wounds noted. Nutrition Intervention Revisit per MD consult or patient Sign Off request: Additional Comments Please reconsult if needed
[2021-03-11] MEDS: FERROUS SULFATE 325 MG TAB PO SCH (10:47)
[2021-03-11] MEDS: CHOLECALCIFEROL (VIT D3) 1000 UNIT (25 mcg) TAB PO SCH (10:47)
[2021-03-11] MEDS: FAMOTIDINE 20 MG TAB PO SCH ×2 (10:47→22:24)
[2021-03-11] MEDS: ASCORBIC ACID 500 MG TAB PO SCH ×2 (10:48→22:24)
[2021-03-11] MEDS: HEPARIN 5,000 UNIT/1 ML VIAL SUB-Q SCH ×2 (10:48→22:24)
[2021-03-11] MEDS: predniSONE 20 MG TAB PO SCH (10:48)
[2021-03-11] MEDS: ZINC SULFATE 220 MG CAP PO SCH ×2 (10:48→22:21)
--- NOTE | 2021-03-11 14:59 | Progress Note ---
Assessment and Plan Cultures: Blood culture no growth so far A/P: 40-year-old female past medical history obesity, anemia admitted with COVID-19 #Severe COVID-19 pneumonia: Patient presented with a week of symptoms, chest x- ray with diffuse bilateral infiltrates #Acute hypoxemic respiratory failure: Likely secondary to COVID-19 infection. Currently on 2 L nasal cannula #Obesity #LATONIA: Resolving Recs: -Steroids per primary for 10 days -Remdesivir 200 mg IV q day x 1 followed by 100 mg IV q day x 4 days -Obtain q48-72h inflammatory markers - ferritin, Ddimer, CRP, LDH -Anticoagulation per hospital protocol -Proning as able Thank you for the consult, we will sign off. Please call with questions. Recommend 6-minute walk test prior to discharge Dalia Guerrier MD [facility] O: [phone] F: [phone] Subjective Date of service: 03/11/21 Interval history: Afebrile, no acute change. On 2 L nasal cannula. Objective - Exam Narrative Exam: Physical exam deferred to reduce risk of transmission of COVID-19. Please refer to primary team's note. - Constitutional Vitals: Vital Signs Temp Pulse Resp BP Pulse Ox 98.0 F 60 19 132/80 98 03/10/21 21:41 03/10/21 21:41 03/10/21 21:41 03/10/21 21:41 03/11/21 10:40 Temperature -Last 24 Hours Temperature 98.0 F Temperature 97.5 F - Labs CBC & Chem 7: 03/07/21 14:39 03/11/21 06:25 Labs: Abnormal lab results 03/11/21 Range/Units 06:25 Carbon Dioxide 32 H (22-30) mmol/L Glucose 135 H (65-100) mg/dL Total Protein 6.0 L (6.3-8.2) g/dL Albumin 2.8 L (3.9-5) g/dL
[2021-03-11] MEDS: REMDESIVIR 100 MG in SODIUM CHLORIDE 0.9% 250ML 250 ML IV SCH (22:20)
[2021-03-11] MEDS: SODIUM CHLORIDE 0.9% 50 ML IVPB IV SCH (22:21)
[2021-03-12 07:05] LABS: BUN/Creatinine Ratio 18; Blood Urea Nitrogen 14 mg/dL (7-17); Calcium 8.8 mg/dL (8.4-10.2); Hemolysis Index 3
[2021-03-12] MEDS ORDERED: POTASSIUM CHLORIDE ER 20 MEQ TAB PO NR (08:26)
[2021-03-12] MEDS: CHOLECALCIFEROL (VIT D3) 1000 UNIT (25 mcg) TAB PO SCH (09:09)
[2021-03-12] MEDS: FAMOTIDINE 20 MG TAB PO SCH (09:09)
[2021-03-12] MEDS: ASCORBIC ACID 500 MG TAB PO SCH (09:09)
[2021-03-12] MEDS: predniSONE 20 MG TAB PO SCH (09:09)
[2021-03-12] MEDS: ZINC SULFATE 220 MG CAP PO SCH (09:09)
[2021-03-12] MEDS: FERROUS SULFATE 325 MG TAB PO SCH (09:12)
[2021-03-12] MEDS: HEPARIN 5,000 UNIT/1 ML VIAL SUB-Q SCH (09:12)
--- NOTE | 2021-03-12 11:01 | Discharge Summary ---
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 Pt reports "I cannot breathe". Patient states that she has experienced shortness of breath over the past 1 week with progressively worsening symptoms over the same timeframe. Patient states that she was diagnosed with coronavirus on February 24, 2021. Patient acknowledges worsening symptoms over the 1 week. EMS notified and upon arrival the patient was found to be in distress with a pulse oximetry of 86% on room air. Patient placed on supplemental oxygen and subsequently transported to [facility] for further care and evaluation of the aforementioned symptoms. The patient was seen and evaluated in the emergency department. All lab and imaging studies reviewed. Patient acknowledges fatigue, malaise, body aches, shortness of breath, subjective fever, as well as decreased exercise tolerance. Patient is unable to speak in complete sentences due to shortness of breath. Patient is using accessory muscles to breathe. Patient found to have a pulse oximetry of 84% on exertion which is consistent with acute hypoxemic respiratory failure. Chest x-ray revealed bilateral pneumonia. Patient admitted to medical floor and initiated on pneumonia protocol as well as coronavirus protocol. Patient treated with supplemental oxygen with mild improvement in symptoms. Infectious disease team consulted in ED. Patient use head gestures to deny chest pain, palpitation, skin rash, recent ill contacts, known exposure to COVID-19. No prior admission for review. No medication listed at time of admission for reconciliation. Hospital Course Sepsis. COVID-19 pneumonia. Acute hypoxic respiratory failure. Etiology secondary to above. Obesity hypoventilation syndrome/SHERIE History of DVT/PE in 201103/06/2021. Await ID consultation. Continue to trend inflammatory markers. Continue IV antibiotics for now. Patient currently with 3 L O2 and satting 96%. Continue O2 supplementation and BiPAP as clinically indicated. 03/07/2021. Await ID consultation. Continue to trend inflammatory markers. Continue O2 to maintain sats greater than 92%. 03/08/2021. Continue IV steroids and likely transition to dexamethasone. Continue remdesivir for total of 5 days. Follow-up inflammatory markers of ferritin, D-dimer, CRP and LDH. Continue empiric IV antibiotics per ID recommendations. Continue anticoagulation. Prone positioning as able. 03/09 -Patient was on 2 L of oxygen, patient is still complaining shortness of breath. Patient states she is very weak. Patient need PT OT evaluation before discharge. We will check home O2 evaluation. 03/10; continue Decadron and remdesivir. PT evaluated and recommend home health. Patient is on 4 L of oxygen and titrate as tolerated. 03/11; continues Decadron, will finish remdesivir tonight. Patient is on 2 L of oxygen. Check home O2 evaluation. 03/12; patient was seen and evaluated this morning. Patient was breathing okay. Home oxygen evaluation was done and her oxygen saturation dropped to 87%, and 2 L of oxygen and arranged and discharged home. Disposition: HOME HEALTH CARE SERVICE Final Discharge Diagnosis (Prints w/discharge instructions): Acute hypoxic respiratory failure. COVID-19 infection Time spent for discharge: 34 minutes - Discharge Diagnoses (1) Acute hypoxemic respiratory failure Status: Acute (2) History of pulmonary embolism Status: Acute (3) Pneumonia due to COVID-19 virus Status: Acute Core Measure Documentation - Palliative Care Palliative Care/ Comfort Measures: Not Applicable - Core Measures Any of the following diagnoses?: none Exam - Physical Exam Narrative exam: Not in cardiopulmonary distress. The patient is morbidly obese Vital signs as documented. Head exam is unremarkable. No scleral icterus . Neck is without jugular venous distension, thyromegaly, or carotid bruits. Lungs decreased air entry. Cardiac exam reveals regular rate and Rhythm. Abdominal exam reveals normal bowel sounds, nontender, no organomegaly. Extremities are nonedematous and both femoral and pedal pulses are normal. DIRECTOR REACTOR PROJECTS: Alert and oriented 3. No focal weakness. - Constitutional Vitals: Temp Pulse Resp BP Pulse Ox 97.6 F 50 L 20 142/76 97 03/12/21 06:49 03/12/21 06:49 03/12/21 06:49 03/12/21 06:49 03/12/21 10:00 Plan Activity: no restrictions Weight Bearing Status: Full Weight Bearing Diet: regular Special Instructions: home oxygen via (2L IN oxygen) Follow up with: PRIMARY CARE, [Primary Care Provider] - 3-5 Days Prescriptions: predniSONE [Deltasone] 40 mg PO QDAY #10 tablet Ascorbic Acid [Vitamin C] 500 mg PO BID #20 tablet Cholecalciferol Vit D3 [Vitamin D3 1,000 UNIT TAB] 1,000 unit PO QDAY #10 tablet Zinc Sulfate 220 mg PO BID #10 capsule
[2021-03-12 13:16] VITALS: BP 101/57
== END 2021-03-12 16:30 | disposition home health service (06) | DRG 871 ==
LOC: ED 14:36 → 3A 18:49
PROVIDERS: ADMIT Internal Medicine; ATTEND Internal Medicine
PROC: 4A033R1 Measurement of Arterial Saturation, Peripheral, Percutaneous Approach (ICD-10-PCS; 2021-03-05)
PROC: XW033E5 Introduction of Remdesivir Anti-infective into Peripheral Vein, Percutaneous Approach, New Technology Group 5 (ICD-10-PCS; principal; 2021-03-07)
DX: A41.9 Sepsis, unspecified organism (principal); U07.1 COVID-19; J96.01 Acute respiratory failure with hypoxia; J12.82 Pneumonia due to coronavirus disease 2019; E66.2 Morbid (severe) obesity with alveolar hypoventilation; N17.9 Acute kidney failure, unspecified; Z86.711 Personal history of pulmonary embolism; Z68.34 Body mass index [BMI] 34.0-34.9, adult; Z86.718 Personal history of other venous thrombosis and embolism; Z83.3 Family history of diabetes mellitus; Z82.49 Family history of ischemic heart disease and other diseases of the circulatory system
CPT/HCPCS: 36415; 71045; 80048; 80053; 81001; 82140; 82728; 82805; 83615; 83735; 84145; 85025; 85379; 85730; 86140; 87040; 94760; G0378; J0456; J0696; J1644; J2060; J2920; J7030; J7050; J7512